=== PATIENT | female | born 1980 | race Caucasian/White ===

== ENCOUNTER 2018-09-13 10:41 | Outpatient (CLI) | payer MEDICAID ==
[~2018-09-13] VITALS: Ht 157.5 cm; Wt 83.0 kg
[2018-09-13 10:47] VITALS: Ht 157.5 cm; Wt 83.0 kg
--- NOTE | 2018-09-13 11:35 | TRIAGE ---
OB Triage Datetime Report Generated by CPN: 09/13/2018 11:35 Datetime: 09/13/2018 11:25 Maternal Assessment Level of Consciousness: Fully Conscious DTR's/Clonus: DTRs 1+ Headache: Denies Blurred Vision: No Nausea/Vomiting: Denies RUQ Epigastric Pain: Denies Facial Edema: None Labor Evaluation Frequency: NONE Monitor Mode: External Resting Tone [place] [employer]: Relaxed Heart Rate FHR Baseline Rate: 150 Monitor Mode: External US Variability: Moderate 6-25 bpm Accelerations: 10X10 Decelerations: Variable Category: Category I Comments: REACTIVE ACCORDDING TO AGE Pain Assessment Pain Scale: 0 Pain Presence: None/Denies Pain Type: N/A Pain Goal: 0 Vaginal Exam Membrane Status: Intact Datetime: 09/13/2018 10:44 Stage of : OB Triage Assessment Type: Triage Maternal Assessment Level of Consciousness: Fully Conscious DTR's/Clonus: DTRs 2+; No Clonus Headache: Denies Blurred Vision: No Respiratory Effort: Unlabored; Regular Rhythm; Equal Expansion Breath Sounds, Left: Clear and Equal Breath Sounds, Right: Clear and Equal Nausea/Vomiting: Denies RUQ Epigastric Pain: Denies Lower Extremities Edema: None Degree: None Upper Extremities Edema: None Degree: None Facial Edema: None Fall Risk Assessment History of Falling: (0) No Secondary Diagnosis: (0) No Ambulatory Aid: (0) Bedrest/Nurse Assist IV Therapy: (0) No Gait: (0) Normal/Bedrest/Immobile Mental Status: (0) Oriented to Own Ability Fall Score: 0 Fall Risk Score Definition: No Risk: No action required Datetime: 09/13/2018 10:36 Time of Arrival: 09/13/2018 10:45 EGA: 23.2 Arrived By: Ambulatory Arrived From: Home Chief Complaint: DFM SINCE LAST NIGHT Movement: Absent Contractions: Denies/Absent Rupture of Membranes: Denies Vaginal Discharge: Denies Recent Sexual Intercouse: Denies Abdominal Trauma: Not Applicable Additional Patient Complaints: NONE Time Provider Notified: 09/13/2018 10:51 (Annotations: Data stored by ROBERT on behalf of user) Provider Notified: MIESHA Initial Plan: CAMILLE AND TIMOTHY
--- NOTE | 2018-09-13 11:43 | PN ---
Triage Information Date/Time 09/13/18 Reason for visit: DFM Weeks of Gestation 23w2d /Para primigravida Diabetes: none Hypertention: none Objective bp 142/87, 119/72 Heart Rate: 150's Heart Rate Comments CAT I Contractions: None Results/Medications Imaging Results MVP4.0 Disposition: Discharge Assessment/Plan A IUP 23w2d DFM P discharge home , f/u with her OB DEVIN BEY MD Sep 13, 2018 11:43
== END 2018-09-13 11:32 | disposition home or self-care (01) ==
LOC: L-D 10:41 → OBT 10:41
PROVIDERS: ATTEND Obstetrics & Gynecology
DX: O36.8130 Decreased fetal movements, third trimester, not applicable or unspecified (principal); O09.512 Supervision of elderly primigravida, second trimester; Z3A.23 23 weeks gestation of pregnancy
CPT/HCPCS: 76815; Z7500; G0463

== ENCOUNTER 2018-11-14 10:28 | Outpatient (CLI) | payer MEDICAID ==
[~2018-11-14] VITALS: Ht 160 cm; Wt 86.6 kg
[2018-11-14 10:37] VITALS: Ht 160 cm; Wt 86.6 kg
--- NOTE | 2018-11-14 12:54 | TRIAGE ---
OB Triage Datetime Report Generated by CPN: 11/14/2018 12:53 Datetime: 11/14/2018 12:52 Stage of : OB Triage Maternal Assessment Level of Consciousness: Fully Conscious DTR's/Clonus: DTRs 1+ Headache: Denies Breath Sounds, Left: Clear and Equal Breath Sounds, Right: Clear and Equal Nausea/Vomiting: Denies RUQ Epigastric Pain: Denies Labor Evaluation Frequency: NONE Monitor Mode: External Resting Tone [place]: Relaxed Heart Rate FHR Baseline Rate: 130 Monitor Mode: External US Variability: Moderate 6-25 bpm Accelerations: 15X15 Decelerations: None Pain Assessment Pain Scale: 0 Pain Presence: None/Denies Pain Type: N/A Pain Goal: 3 Vaginal Exam Membrane Status: Intact Datetime: 11/14/2018 12:00 Stage of : OB Triage Maternal Assessment Level of Consciousness: Fully Conscious DTR's/Clonus: DTRs 1+ Headache: Denies Breath Sounds, Left: Clear and Equal Breath Sounds, Right: Clear and Equal Nausea/Vomiting: Denies RUQ Epigastric Pain: Denies Labor Evaluation Frequency: NONE Monitor Mode: External Resting Tone [place]: Relaxed Heart Rate FHR Baseline Rate: 130 Monitor Mode: External US Variability: Moderate 6-25 bpm Accelerations: 15X15 Decelerations: None Category: Category I Pain Assessment Pain Scale: 0 Pain Presence: None/Denies Pain Type: N/A Pain Goal: 3 Vaginal Exam Membrane Status: Intact Datetime: 11/14/2018 11:22 Maternal Assessment Level of Consciousness: Fully Conscious DTR's/Clonus: DTRs 1+ Headache: Denies Blurred Vision: No Respiratory Effort: Unlabored Breath Sounds, Left: Clear and Equal Breath Sounds, Right: Clear and Equal Nausea/Vomiting: Denies RUQ Epigastric Pain: Denies Facial Edema: None Labor Evaluation Frequency: NONE Monitor Mode: External Resting Tone [place]: Relaxed Heart Rate FHR Baseline Rate: 130 Monitor Mode: External US Variability: Moderate 6-25 bpm Accelerations: 15X15 Decelerations: None Category: Category I Pain Assessment Pain Scale: 0 Pain Presence: None/Denies Pain Type: N/A Pain Goal: 3 Vaginal Exam Membrane Status: Intact Datetime: 11/14/2018 11:04 Maternal Assessment Level of Consciousness: Fully Conscious DTR's/Clonus: DTRs 1+ Headache: Denies Blurred Vision: No Respiratory Effort: Unlabored Breath Sounds, Left: Clear and Equal Breath Sounds, Right: Clear and Equal Nausea/Vomiting: Denies RUQ Epigastric Pain: Denies Facial Edema: None Labor Evaluation Frequency: X1 Monitor Mode: External Duration (sec)2399: 50 Quality: Mild Pattern: Normal: <= 5 Contractions in 10 Minutes Resting Tone [place]: Relaxed Heart Rate FHR Baseline Rate: 135 Monitor Mode: External US Variability: Moderate 6-25 bpm Accelerations: 15X15 Decelerations: None Category: Category I Pain Assessment Pain Scale: 0 Pain Presence: None/Denies Pain Type: N/A Pain Goal: 3 Vaginal Exam Membrane Status: Intact Datetime: 11/14/2018 10:43 Maternal Assessment Level of Consciousness: Fully Conscious DTR's/Clonus: DTRs 1+ Headache: Denies Blurred Vision: No Nausea/Vomiting: Denies RUQ Epigastric Pain: Denies Facial Edema: None Monitor Mode: External Resting Tone [place]: Relaxed Heart Rate FHR Baseline Rate: 130 Monitor Mode: External US Variability: Moderate 6-25 bpm Accelerations: 10X10 Decelerations: None Category: Category I Pain Assessment Pain Scale: 0 Pain Presence: None/Denies Pain Type: N/A Pain Goal: 3 Vaginal Exam Membrane Status: Intact Datetime: 11/14/2018 10:36 Assessment Type: Triage Maternal Assessment Level of Consciousness: Fully Conscious DTR's/Clonus: DTRs 2+; No Clonus Headache: Denies Blurred Vision: No Respiratory Effort: Unlabored; Regular Rhythm; Equal Expansion Breath Sounds, Left: Clear and Equal Breath Sounds, Right: Clear and Equal Nausea/Vomiting: Denies RUQ Epigastric Pain: Denies Lower Extremities Edema: None Degree: None Upper Extremities Edema: None Degree: None Facial Edema: None Fall Risk Assessment History of Falling: (0) No Secondary Diagnosis: (0) No Ambulatory Aid: (0) Bedrest/Nurse Assist IV Therapy: (0) No Gait: (0) Normal/Bedrest/Immobile Mental Status: (0) Oriented to Own Ability Fall Score: 0 Fall Risk Score Definition: No Risk: No action required Datetime: 11/14/2018 10:20 Time of Arrival: 11/14/2018 10:20 EGA: 32.1 Arrived By: Wheelchair Arrived From: Home Chief Complaint: PT CAME IN FOR DFM Movement: Decreased Contractions: Denies/Absent Rupture of Membranes: Denies Vaginal Discharge: Denies Recent Sexual Intercouse: Denies Abdominal Trauma: Not Applicable Additional Patient Complaints: NONE Time Provider Notified: 11/14/2018 10:35 Provider Notified: MIESHA Initial Plan: NST AND BPP Datetime: 09/13/2018 10:44 Fall Score: 0 Fall Risk Score Definition: No Risk: No action required Datetime: 09/13/2018 10:36 EGA: 23.2
--- NOTE | 2018-11-14 14:26 | PN ---
Triage Information Date/Time November 14, 2018 Reason for visit: DFM Weeks of Gestation 32 weeks and 1 day /Para 1 para 0 Diabetes: none Hypertention: none Additional information 38-year-old with IUP at 32 weeks and 1 day presented with complaint of decreased movement. Patient had a history of gestational diabetes and current on insulin. Denies any leaking of fluid, vaginal bleeding or contractions. Denies any headache, blurred vision epigastric pain or right upper quadrant pain. Noted to have occasional blood pressure in the range of 130s-150s over 90s. records reviewed. Appears to have chronic hypertension based on elevated blood pressure in first trimester in the range of 150s-160s. Patient denies any symptoms. Is not on medication. Objective Heart Rate: 130's Exam General appearance: Alert and oriented x4 does not appear to be in any acute distress Abdomen: Soft, gravid, fundal height consider gestational age nontender NST: Category 1 and reactive BPP: 8/8 PH labs are negative Serial blood pressure most of the blood pressure in the range of 130s over 90s. Symptomatic Laboratory Tests Test 11/14/18 11:00 11/14/18 11:50 Urine Color YELLOW Urine Clarity CLEAR Urine pH 7.0 Urine Specific [place] 1.010 Urine Ketones NEGATIVE Urine Nitrite NEGATIVE Urine Bilirubin NEGATIVE Urine Urobilinogen NEGATIVE Urine Leukocyte Esterase NEGATIVE Urine Hemoglobin NEGATIVE Urine Glucose NEGATIVE Urine Total Protein NEGATIVE White Blood Count 7.9 Red Blood Count 4.54 Hemoglobin 13.1 Hematocrit 38.8 Mean Corpuscular Volume 85.5 Mean Corpuscular Hemoglobin 28.9 L Mean Corpuscular Hemoglobin Concent 33.8 Red Cell Distribution Width 13.0 Platelet Count 235 Mean Platelet Volume 10.2 Immature Granulocytes % 0.500 H Neutrophils % 65.7 Lymphocytes % 26.1 Monocytes % 5.9 Eosinophils % 1.4 Basophils % 0.4 Nucleated Red Blood Cells % 0.0 Immature Granulocytes # 0.040 H Neutrophils # 5.2 Lymphocytes # 2.1 Monocytes # 0.5 Eosinophils # 0.1 Basophils # 0.0 Nucleated Red Blood Cells # 0.0 Prothrombin Time 11.6 L Prothrombin Time Ratio 0.9 INR International Normalized Ratio 0.84 Activated Partial Thromboplast Time 26.5 Sodium Level 141 Potassium Level 4.5 Chloride Level 109 Carbon Dioxide Level 21 Anion Gap 11 Blood Urea Nitrogen 8 Creatinine 0.51 Est Glomerular Filtrat Rate mL/min > 60 Glucose Level 87 Uric Acid 3.2 Calcium Level 8.5 Total Bilirubin 0.3 Direct Bilirubin 0.00 Indirect Bilirubin 0.3 Aspartate Amino Transf (AST/SGOT) 24 Alanine Aminotransferase (ALT/SGPT) 25 Alkaline Phosphatase 115 Total Protein 6.5 Albumin 3.4 Globulin 3.10 Albumin/Globulin Ratio 1.09 Results/Medications Result Diagram: 11/14/18 1150 11/14/18 1150 Results 24 hrs Laboratory Tests Test 11/14/18 11:00 11/14/18 11:50 Urine Color YELLOW Urine Clarity CLEAR Urine pH 7.0 Urine Specific [place] 1.010 Urine Ketones NEGATIVE Urine Nitrite NEGATIVE Urine Bilirubin NEGATIVE Urine Urobilinogen NEGATIVE Urine Leukocyte Esterase NEGATIVE Urine Hemoglobin NEGATIVE Urine Glucose NEGATIVE Urine Total Protein NEGATIVE White Blood Count 7.9 Red Blood Count 4.54 Hemoglobin 13.1 Hematocrit 38.8 Mean Corpuscular Volume 85.5 Mean Corpuscular Hemoglobin 28.9 L Mean Corpuscular Hemoglobin Concent 33.8 Red Cell Distribution Width 13.0 Platelet Count 235 Mean Platelet Volume 10.2 Immature Granulocytes % 0.500 H Neutrophils % 65.7 Lymphocytes % 26.1 Monocytes % 5.9 Eosinophils % 1.4 Basophils % 0.4 Nucleated Red Blood Cells % 0.0 Immature Granulocytes # 0.040 H Neutrophils # 5.2 Lymphocytes # 2.1 Monocytes # 0.5 Eosinophils # 0.1 Basophils # 0.0 Nucleated Red Blood Cells # 0.0 Prothrombin Time 11.6 L Prothrombin Time Ratio 0.9 INR International Normalized Ratio 0.84 Activated Partial Thromboplast Time 26.5 Sodium Level 141 Potassium Level 4.5 Chloride Level 109 Carbon Dioxide Level 21 Anion Gap 11 Blood Urea Nitrogen 8 Creatinine 0.51 Est Glomerular Filtrat Rate mL/min > 60 Glucose Level 87 Uric Acid 3.2 Calcium Level 8.5 Total Bilirubin 0.3 Direct Bilirubin 0.00 Indirect Bilirubin 0.3 Aspartate Amino Transf (AST/SGOT) 24 Alanine Aminotransferase (ALT/SGPT) 25 Alkaline Phosphatase 115 Total Protein 6.5 Albumin 3.4 Globulin 3.10 Albumin/Globulin Ratio 1.09 Imaging Results PROCEDURE: US OB biophysical profile. CLINICAL INDICATION: decreased movements, TECHNIQUE: Multiple sonographic images of the pelvis were obtained. The images were reviewed on a PACS workstation. COMPARISON: US PELVIS 09/13/2018 FINDINGS: There is a single live intrauterine gestation. Cardiac activity is present with 134 beats per minute. There is a vertex presentation. The placenta is posterior. There is no evidence of placental abruption. There is a normal amount of amniotic fluid with an MECCA = 11.9 cm. Biophysical profile: movement 2/2 tone 2/2. breathing 2/2 MECCA 2/2 Total 03/27 RPTAT: AA . IMPRESSION: Normal biophysical profile. . Disposition: Discharge Assessment/Plan IUP at 32 weeks and 1 day Decreased movement testing reassuring Chronic hypertension, not on meds. Asymptomatic Recommended the patient to return tomorrow to triage for dropping 24-hour urine protein collection as well as monitoring the blood pressure Currently no evidence of preeclampsia testing reassuring Strict labor precautions kick count and follow-up with primary OB office in 48 hours after discharge from the hospital discussed with patient Signs and symptoms of discussed on strict precaution was given Patient verbalized understanding. All questions were answered to patient with satisfaction NOEMY MARINO MD Nov 14, 2018 14:26
== END 2018-11-14 12:51 | disposition home or self-care (01) ==
LOC: OBT 10:28 → L-D 10:28 → OBT 12:51
PROVIDERS: ATTEND Obstetrics & Gynecology
DX: O36.8130 Decreased fetal movements, third trimester, not applicable or unspecified (principal); Z3A.32 32 weeks gestation of pregnancy
CPT/HCPCS: 76818; 80053; 81003; 84560; 85025; 85610; 85730; Z7500; 82575; 84156; G0463

== ENCOUNTER 2018-11-21 23:55 | Inpatient (IN) | payer MEDICAID ==
[~2018-11-21] VITALS: Ht 157.5 cm; Wt 88.7 kg
[2018-11-22 00:23] VITALS: BP 125/90; PULSE 73; RESP 18; Ht 157.5 cm; Wt 88.7 kg
[2018-11-22] MEDS ORDERED: INSU100V3 IJ (02:14)
[2018-11-22] MEDS ORDERED: NPH,100I5 SQ (02:14)
[2018-11-22] MEDS ORDERED: PREN-93 PO (02:14)
[2018-11-22] MEDS: LACTATED RINGER'S 1,000 ML IV SCH ×3 (04:00→18:46)
[2018-11-22] MEDS: BETAMET NA PHOS/AC(6 MG/ML) 2 ML INJ SYG IM SCH (04:02)
--- NOTE | 2018-11-22 06:08 | TRIAGE ---
OB Triage Datetime Report Generated by CPN: 11/22/2018 06:08 Datetime: 11/22/2018 06:05 Monitor Mode: External US Datetime: 11/22/2018 05:30 Stage of : Labor Interventions: IV Bolus; Other Comments: right lateral position Datetime: 11/22/2018 04:51 Stage of : Antepartum Labor Evaluation Frequency: 2-5 Monitor Mode: External Duration (sec)2399: 40-60 Pattern: Normal: <= 5 Contractions in 10 Minutes Resting Tone [place]: Relaxed Heart Rate FHR Baseline Rate: 130 Monitor Mode: External US Variability: Moderate 6-25 bpm Accelerations: 15X15 Pain Assessment Pain Scale: 0 Pain Presence: None/Denies Pain Type: N/A Pain Relief Measures: Comfort Measures Datetime: 11/22/2018 03:50 Labor Evaluation Frequency: 2-7 Monitor Mode: External Duration (sec)2399: 50-70 Quality: Mild Resting Tone [place]: Relaxed Interventions: Side to Side Heart Rate FHR Baseline Rate: 135 Monitor Mode: External US Variability: Moderate 6-25 bpm Accelerations: 15X15 Decelerations: Variable Category: Category II Comments: variable x1 noted Datetime: 11/22/2018 03:17 Assessment Type: Admission Assessment Vaginal Bleeding: None Maternal Assessment Level of Consciousness: Fully Conscious DTR's/Clonus: DTRs 2+; No Clonus Headache: Denies Blurred Vision: No Respiratory Effort: Unlabored; Regular Rhythm; Equal Expansion Breath Sounds, Left: Clear and Equal Breath Sounds, Right: Clear and Equal Nausea/Vomiting: Denies RUQ Epigastric Pain: Denies Facial Edema: None Fall Risk Assessment History of Falling: (0) No Secondary Diagnosis: (0) No Ambulatory Aid: (0) Bedrest/Nurse Assist IV Therapy: (0) No Gait: (0) Normal/Bedrest/Immobile Mental Status: (0) Oriented to Own Ability Fall Score: 0 Fall Risk Score Definition: No Risk: No action required Datetime: 11/22/2018 02:50 Labor Evaluation Frequency: 3-9 Monitor Mode: External Duration (sec)2399: 50-80 Quality: Mild Pattern: Normal: <= 5 Contractions in 10 Minutes Resting Tone [place]: Relaxed Heart Rate FHR Baseline Rate: 130 Monitor Mode: External US Variability: Moderate 6-25 bpm Accelerations: 15X15 Decelerations: None Category: Category I Pain Presence: Intermittent Pain Type: Pressure Pain Location: Abdomen Pain Relief Measures: Comfort Measures Pain Assessment Comments: pt states she feels occasional pressure and tightness in abdomen but no p ain Datetime: 11/22/2018 02:16 Monitor Mode: Palpation Quality: Mild Contraction Comments: pt states she feels a tiny bit of tightness/pressure in the abdomen but no p ain Datetime: 11/22/2018 01:50 Labor Evaluation Frequency: occasional Monitor Mode: External Duration (sec)2399: 40-60 Quality: Mild Resting Tone [place]: Relaxed Interventions: Side to Side; Provider Notified Heart Rate FHR Baseline Rate: 135 Monitor Mode: External US Variability: Moderate 6-25 bpm Accelerations: 15X15 Decelerations: Prolonged Category: Category II Comments: 4min prolonged decel down to [place] of 105bpm with return to baseline of 135bpm noted Datetime: 11/22/2018 01:47 Monitor Mode: External Datetime: 11/22/2018 01:24 Labor Evaluation Frequency: x3/hr Monitor Mode: External Duration (sec)2399: 60-70 Quality: Mild Resting Tone [place]: Relaxed Contraction Comments: some uterine irritability noted Heart Rate FHR Baseline Rate: 135 Monitor Mode: External US Variability: Moderate 6-25 bpm Accelerations: 15X15 Decelerations: Variable Category: Category II Comments: x1 variable noted Pain Assessment Pain Scale: 0 Pain Presence: None/Denies Pain Type: N/A Datetime: 11/22/2018 00:32 Time of Arrival: 11/22/2018 23:54 EGA: 33.2 Arrived By: Ambulatory Arrived From: Home Chief Complaint: DECREASED MOVEMENT X 1DAY Movement: Decreased Contractions: Denies/Absent Rupture of Membranes: Denies Vaginal Bleeding: None Vaginal Discharge: Denies Recent Sexual Intercouse: Denies Abdominal Trauma: Not Applicable Patient Complaints: Other Additional Patient Complaints: Pt has had Type 2 DM for 6yrs now and is taking Regular _ NPH insuli n Time Provider Notified: 11/22/2018 00:46 Provider Notified: Initial Plan: VS, NST, BPP Datetime: 11/22/2018 00:23 Stage of : OB Triage Assessment Type: Triage Maternal Assessment Level of Consciousness: Fully Conscious DTR's/Clonus: DTRs 2+; No Clonus Headache: Denies Blurred Vision: No Respiratory Effort: Unlabored; Regular Rhythm; Equal Expansion Breath Sounds, Left: Clear and Equal Breath Sounds, Right: Clear and Equal Nausea/Vomiting: Denies RUQ Epigastric Pain: Denies Lower Extremities Edema: None Degree: None Upper Extremities Edema: None Degree: None Facial Edema: None Temperature Route: Oral Fall Risk Assessment History of Falling: (0) No Secondary Diagnosis: (0) No Ambulatory Aid: (0) Bedrest/Nurse Assist IV Therapy: (0) No Gait: (0) Normal/Bedrest/Immobile Mental Status: (0) Oriented to Own Ability Fall Score: 0 Fall Risk Score Definition: No Risk: No action required Pain Assessment Pain Scale: 0 Pain Presence: None/Denies Pain Type: N/A Datetime: 11/22/2018 00:21 Monitor Mode: External Monitor Mode: External US Comments: MONITOR APPLIED, FHT AUBIDLE AROUND 120BPM Datetime: 11/14/2018 10:36 Fall Score: 0 Fall Risk Score Definition: No Risk: No action required Datetime: 11/14/2018 10:20 EGA: 32.1 Datetime: 09/13/2018 10:44 Fall Score: 0 Fall Risk Score Definition: No Risk: No action required Datetime: 09/13/2018 10:36 EGA: 23.2
[2018-11-22] MEDS: INSULIN REGULAR, HUMAN 100 UNIT/1 ML 3ML VIAL SC SCH ×2 (08:25→17:14)
[2018-11-22] MEDS: NPH, HUMAN INSULIN ISOPHANE 3ML VIAL SC SCH ×2 (08:29→21:10)
[2018-11-22] MEDS: MAGNESIUM SULFATE 20 GM/500 ML 500 ML IV SCH ×2 (08:33→19:22)
[2018-11-22] MEDS ORDERED: MAGNESIUM SULFATE 4 GM/100 ML 100 ML IV SCH (09:00)
[2018-11-22] MEDS ORDERED: CA GLUCONATE (GM) 10% 10ML INJ IV PRN (09:00)
[2018-11-22] MEDS ORDERED: NACL 0.9% 3 ML SYG IV SCH (09:00)
[2018-11-22] MEDS: PRENATAL VITAMIN PO SCH (09:41)
--- NOTE | 2018-11-22 13:23 | PERINOTE ---
Date/Time of Note Date/Time of Note DATE: 11/22/18 TIME: 13:18 Assessment/Recommendations Other Assessments IUP at 33 weeks Chronic hypertension (BPs on this admission are similar to those in care (average 108-167/61-92). Cannot rule our a component of superimposed PIH Diabetes, managed with insulin. With betamethasone use the blood glucose levels are increased, but are in the range of 130-140 post prandial. Recommendations: I would observe this patient until after the second dose of betamethasone. I would then continue to observe the blood glucose for an additional 12-24 hours with the patient on reduced activity (not bed rest). If the blood glucose remains less than 150 and the BP does not increase with some increase in activity I would consider D/C home with close observation, including twice weekly NST and weekly MECCA, weekly PIH labs and ultrasound every 3 weeks for growth. OB Subjective Free Text/Dictaton Patient presented for decreased movement, found to have elevated BP with normal lab values. Patient was given betamethasone and treated with magnesium sulfate. Patient also a pregestational diabetic, treated with insulin. HD# 2 IUP @ 33W2D Current Medications Current Medications Betamethasone Acet/Betameth SodPhos ([place]el[place] Soluspan) 12 mg Q24H IM Last administered on 11/22/18at 04:02; Admin Dose 12 MG; Start 11/22/18 at 03:00; Stop 11/23/18 at 03:01 Prenat Multivit/ [place]/Iron/Folic Ac () 1 tab DAILY PO Last administered on 11/22/18at 09:41; Admin Dose 1 TAB; Start 11/22/18 at 09:00 Insulin Human NPH (Humulin N) 24 unit AC BREAKFAST SC Last administered on 11/22/18at 08:29; Admin Dose 24 UNIT; Start 11/22/18 at 07:05 Insulin Human Regular (Humulin R) 16 unit AC DINNER SC ; Start 11/22/18 at 17:05 Insulin Human NPH (Humulin N) 24 unit HS SC ; Start 11/22/18 at 21:00 Insulin Human Regular (Humulin R) 12 unit AC BREAKFAST SC Last administered on 11/22/18at 08:25; Admin Dose 12 UNIT; Start 11/22/18 at 07:05 IV Flush (NS 3 ml) 3 ml PER PROTOCOL IV ; Start 11/22/18 at 09:00 Magnesium Sulfate 500 ml @ 50 mls/hr Q10H IV Last administered on 11/22/18at 08:33; Admin Dose 50 MLS/HR; Start 11/22/18 at 08:33 Calcium Gluconate (Ca Gluc) 1 gm ONCE PRN IV FOR MAGNESIUM TOXICITY; Start 11/22/18 at 09:00 Lactated Ringer's 1,000 ml @ 75 mls/hr [id number] IV ; Start 11/22/18 at 09:49 Past Medical History Medical History: diabetes, hypertension Surgical History: other (Ovarian cystectomy) Para: 0 : 1 LMP (Females 10-50): Family History Significant Family History: diabetes, hypertension Social History Smoker: non-smoker Alcohol: none Drugs: none OB Admission Exam Physical Exam Vitals: Vital Signs Date Temp Pulse Resp B/P (MAP) Pulse Ox O2 O2 Flow FiO2 Time Delivery Rate 11/22/18 97.5 73 18 125/90 Room Air 00:23 (102) BP's 116-175/75-99 Heart: Rhythm Normal Lungs: Clear Abdomen: WNL Last 72 hourBlood Glucose Bedside Glucose - 72 Hours Test 11/22/18 00:39 11/22/18 08:19 11/22/18 10:52 11/22/18 12:26 Bedside 124 132 135 138 Glucose mg/dL (70-220) mg/dL (70-220) mg/dL (70-220) mg/dL (70-220) Last 72 hours Lab Results CBC & BMP 11/22/18 03:35 Liver Function Test 11/22/18 03:35 Alanine Aminotransferase (ALT/SGPT) 27 Albumin 3.2 L Alkaline Phosphatase 137 H Aspartate Amino Transf (AST/SGOT) 23 Direct Bilirubin 0.00 Total Protein 6.2 Ultrasound Results EFW 2363g with disproportionately increased AC. BPP /8 MECCA 10.7 Cervical Length 3.8 cm PACO MOCTEZUMA MD Nov 22, 2018 13:23
[2018-11-22] MEDS ORDERED: ACETAMINOPHEN 325 MG TAB PO PRN (19:30)
--- NOTE | 2018-11-22 19:43 | HP ---
Date/Time of Note Date/Time of Note DATE: 11/22/18 TIME: 19:24 OB - History Hx of Present Free Text/Dictation service was rendered on 11/21/18 this is 38y.o primigravida at 32w 1d presents triage with c/o DFM Initial BP 150/90 also known to be type II DM on insulin EFM no UC's CAT II while evaluating for PIH situation EFM revealed some uc's BPP 8/8 MECCA 11.9 admitted for further evaluation and extended observation of tracing and also collecting 24 hrs and perinatalogy consultation. Chief Complaint: DFM Estimated Due Date: January 08, 2019 : 1 Para: 0 Spontaneous : 0 Therapeutic : 0 Care: Good Care Ultrasounds: Normal mid trimester US Obstetrical Complications: Gestational Hypertension, Other (type II DM) Past Family/Social History * Past Medical, Surgical, Family and Obstetric Histories reviewed from chart. Blood Type: Unknown Rubella: unknown RPR/VDRL: Unknown GBS Status: Unknown HBsAG: Unknown OB Admission Exam Vital Signs Vital Signs Vital Signs Date Temp Pulse Resp B/P (MAP) Pulse Ox O2 O2 Flow FiO2 Time Delivery Rate 11/22/18 97.5 73 18 125/90 Room Air 00:23 (102) Physical Exam HEENT: WNL Heart: Rhythm Normal Lungs: Clear, Equal Abdomen: WNL Extremities: Normal Reflexes: Normal Cervical Dilatation: other Effacement: Other Membranes: Intact Amniotic Fluid: Unevaluable Heart Rate: 140's Accelerations: No Accelerations Decelerations: Variable Decelerations Varibility: Minimum Contractions on Admission: None Last 72 hourBlood Glucose Bedside Glucose - 72 Hours Test 11/22/18 00:39 11/22/18 08:19 11/22/18 10:52 11/22/18 12:26 Bedside 124 132 135 138 Glucose mg/dL (70-220) mg/dL (70-220) mg/dL (70-220) mg/dL (70-220) Test 11/22/18 17:11 Bedside 122 Glucose mg/dL (70-220) Last 72 hours Lab Results CBC & BMP 11/22/18 03:35 Liver Function Test 11/22/18 03:35 Alanine Aminotransferase (ALT/SGPT) 27 Albumin 3.2 L Alkaline Phosphatase 137 H Aspartate Amino Transf (AST/SGOT) 23 Direct Bilirubin 0.00 Total Protein 6.2 OB Assessment/Plan Other Assessment: IUO 32w1d IDDM( B DM) GHTN\ PTL P BMZx2 keven consult 24 hr collection urine for MN and Cr DEVIN BEY MD Nov 22, 2018 19:35
[2018-11-23] MEDS: BETAMET NA PHOS/AC(6 MG/ML) 2 ML INJ SYG IM SCH (03:56)
[2018-11-23] MEDS: MAGNESIUM SULFATE 20 GM/500 ML 500 ML IV SCH (05:56)
[2018-11-23] MEDS: LACTATED RINGER'S 1,000 ML IV SCH ×2 (07:21→18:42)
--- NOTE | 2018-11-23 07:54 | QN ---
Documentation Comment PT NOT FEELING UTERINE CTXS RECEIVED THE SECOND DOSE OF STEROIDS MAGNESIUM WILL BE OFF TOMORROW TRACING CATEGORY 1 TOTAL PROTIEN IS 566 WILL ORDER ANOTHER BPP FOR THE SPONTANEOUS DECLERATION FROM LAST NIGHT CPM ASHLY WHITESIDE MD Nov 23, 2018 07:54
[2018-11-23] MEDS: NPH, HUMAN INSULIN ISOPHANE 3ML VIAL SC SCH ×2 (08:08→21:04)
[2018-11-23] MEDS: INSULIN REGULAR, HUMAN 100 UNIT/1 ML 3ML VIAL SC SCH ×2 (08:09→17:44)
[2018-11-23] MEDS: PRENATAL VITAMIN PO SCH (09:14)
--- NOTE | 2018-11-23 10:19 | PN ---
Date/Time of Note Date/Time of Note DATE: 11/23/18 TIME: 10:15 OB Subjective Subjective Subjective I was asked to review this patient's heart tracing. At About 9:45 this AM the patient had a prolonged variable deceleration to 60bpm, lasting 4-5 minutes from baseline to baseline FHR. After the deceleration, the heart rate elevated to about 140 bpm with loss of accelerations and decreased variability for 15-20 minutes, followed by gradual recovery. The patient had a similar deceleration at about 1:30AM, although the recovery was more rapid. BPP this AM was 8/8. Given the circumstances (type 2 diabetes, CHTN with possible superimposed PIH), I would be concerned about placental damage. Please perform an umbilical artery Doppler exam. I would not discharge this patient unless the Doppler exam is normal and the decelerations stop for a minimum of 24 hours. In the meantime I would make sure the patient has SCDs applied, is not lying flat and supine and I would discontinue the magnesium as the patient is not in labor. PACO MOCTEZUMA MD Nov 23, 2018 10:19
[2018-11-23] MEDS: DOCUSATE SODIUM 100 MG CAP PO PRN (23:25)
--- NOTE | 2018-11-24 08:38 | QN ---
Documentation Comment 33+wks GA preeclampsia BP 140s/90s No Headache No blurry vision No epigastric pain NST reassuring [place] No CTXs --->Management as perinatologist and provider YOJANA SALAZAR M.D. Nov 24, 2018 08:38
[2018-11-24] MEDS: INSULIN REGULAR, HUMAN 100 UNIT/1 ML 3ML VIAL SC SCH ×2 (08:55→18:06)
[2018-11-24] MEDS: LACTATED RINGER'S 1,000 ML IV SCH ×2 (08:56→21:55)
[2018-11-24] MEDS: NPH, HUMAN INSULIN ISOPHANE 3ML VIAL SC SCH ×2 (08:56→21:00)
[2018-11-24] MEDS: PRENATAL VITAMIN PO SCH (09:19)
[2018-11-25] MEDS: LACTATED RINGER'S 1,000 ML IV SCH ×3 (04:29→23:58)
[2018-11-25] MEDS: INSULIN REGULAR, HUMAN 100 UNIT/1 ML 3ML VIAL SC SCH ×2 (08:17→18:16)
[2018-11-25] MEDS: NPH, HUMAN INSULIN ISOPHANE 3ML VIAL SC SCH ×2 (08:20→21:08)
[2018-11-25] MEDS: PRENATAL VITAMIN PO SCH (08:21)
--- NOTE | 2018-11-25 17:28 | QN ---
Documentation Comment PT IS ASYMPTOMATIC NO HEADACHE BP 180/[address] LOONEY WILL START LABATELOL 100MG BID AND REPEAT PIH LABS ASHLY WHITESIDE MD Nov 25, 2018 17:28
[2018-11-25] MEDS ORDERED: LABETALOL 100 MG TAB PO SCH ×3 (21:00)
[2018-11-25] MEDS ORDERED: LABETALOL 100 MG TAB PO ONE (22:30)
[2018-11-26] MEDS: PRENATAL VITAMIN PO SCH (08:43)
[2018-11-26] MEDS: LABETALOL 200 MG TAB PO SCH ×2 (08:43→20:51)
[2018-11-26] MEDS: INSULIN REGULAR, HUMAN 100 UNIT/1 ML 3ML VIAL SC SCH ×2 (08:46→18:20)
[2018-11-26] MEDS: NPH, HUMAN INSULIN ISOPHANE 3ML VIAL SC SCH ×2 (08:48→20:54)
[2018-11-26] MEDS: LACTATED RINGER'S 1,000 ML IV SCH (12:55)
[2018-11-27] MEDS ORDERED: LABETALOL 100 MG TAB PO STA (01:22)
[2018-11-27] MEDS: LACTATED RINGER'S 1,000 ML IV SCH ×3 (01:40→18:37)
[2018-11-27] MEDS ORDERED: LABETALOL 200 MG TAB PO SCH (06:00)
[2018-11-27] MEDS: PRENATAL VITAMIN PO SCH (08:10)
[2018-11-27] MEDS: INSULIN REGULAR, HUMAN 100 UNIT/1 ML 3ML VIAL SC SCH (08:14)
[2018-11-27] MEDS: NPH, HUMAN INSULIN ISOPHANE 3ML VIAL SC SCH (08:16)
[2018-11-27] MEDS ORDERED: LACTATED RINGER'S 1,000 ML IV SCH ×2 (11:45→18:39)
[2018-11-27] MEDS ORDERED: OXYTOCIN 30 UNITS/LR 500 ML IV PRN ×2 (12:00→19:00)
[2018-11-27] MEDS ORDERED: MAGNESIUM SULFATE 4 GM/100 ML 100 ML IVPB ONE (12:00)
[2018-11-27] MEDS ORDERED: CEFAZOLIN 2 GM/50 ML (PMX) 50 ML IVPB SCH (12:00)
[2018-11-27] MEDS ORDERED: MAGNESIUM SULFATE 20 GM/500 ML 500 ML IV SCH (12:00)
[2018-11-27] MEDS ORDERED: CARBOPROST 250 MCG INJ IM PRN ×2 (12:00→19:00)
[2018-11-27] MEDS ORDERED: MISOPROSTOL 200 MCG TAB PR PRN ×2 (12:00→19:00)
[2018-11-27] MEDS ORDERED: METHYLERGONOVINE 0.2 MG INJ IM PRN ×2 (12:00→19:00)
--- NOTE | 2018-11-27 13:29 | PREAC ---
Date/Time of Note Date/Time of Note DATE: 11/27/18 TIME: 13:28 Anesthesia Eval and Record Evaluation Time Pre-Procedure Interview DATE: 11/27/18 TIME: 13:28 Age 38 Sex female NPO: 8 hrs Preoperative diagnosis iup at 33 weeks Planned procedure primary c section Past Medical History Past Medical History: Includes : PIH Surgery & Anesthesia Issues No known issue Meds Anticoagulation: No Beta Jorge Luis within 24 hr: No Reason Beta Jorge Luis not given: Pt. not on B-Jorge Luis Reported Medications Vit No.124/Iron/FA ( Vitamin Tablet) 1 Each Tablet, 1 EACH PO, TAB 11/22/18 NPH, Human Insulin Isophane (Humulin N Kwikpen) 100 Unit/1 Ml Insuln.pen, 24 UNIT SQ, EA 11/22/18 Insulin Regular, Human (Humulin R) 100 Unit/1 Ml Vial, 16 UNIT IJ, VIAL 11/22/18 Current Medications Prenat Multivit/ [place]/Iron/Folic Ac () 1 tab DAILY PO Last administer ed on 11/27/18at 08:10; Admin Dose 1 TAB; Start 11/22/18 at 09:00 Insulin Human NPH (Humulin N) 24 unit AC BREAKFAST SC Last administered on 11/27/18at 08:16; Admin Dose 24 UNIT; Start 11/22/18 at 07:05 Insulin Human Regular (Humulin R) 16 unit AC DINNER SC Last administered on 11/26/18at 18:20; Admin Dose 16 UNIT; Start 11/22/18 at 17:05 Insulin Human NPH (Humulin N) 24 unit HS SC Last administered on 11/26/18at 20:54; Admin Dose 24 UNIT; Start 11/22/18 at 21:00 Insulin Human Regular (Humulin R) 12 unit AC BREAKFAST SC Last administered on 11/27/18 08:14; Admin Dose 12 UNIT; Start 11/22/18 at 07:05 Lactated Ringer's 1,000 ml @ 75 mls/hr [id number] IV Last administered on 11/27/18at 01:40; Admin Dose 75 MLS/HR; Start 11/22/18 at 09:49 Acetaminophen (Tylenol Tab) 650 mg Q4H PRN PO MILD PAIN(1-3)OR ELEVATED TEMP Last administered on 11/22/18at 19:28; Admin Dose 650 MG; Start 11/22/18 at 19:30 Docusate Sodium (Colace) 100 mg BID PRN PO CONSTIPATION Last administered on 11/23/18at 23:25; Admin Dose 100 MG; Start 11/23/18 at 23:00 Labetalol HCl (Normodyne) 200 mg Q8 PO Last administered on 11/27/18at 05:48; Admin Dose 200 MG; Start 11/27/18 at 06:00 Lactated Ringer's 1,000 ml @ 125 mls/hr Q8H IV Last administered on 11/27/18at 12:03; Admin Dose 125 MLS/HR; Start 11/27/18 at 11:45 Cefazolin Sodium/ Dextrose 50 ml @ 100 mls/hr ONCE IVPB ; Start 11/27/18 at 12:00 Oxytocin/Lactated Ringer's 500 ml @ 0 mls/hr ONCE PRN IV .VAGINAL BLEEDING; Start 11/27/18 at 12:00 Methylergonovine Maleate (Methergine) 0.2 mg ONCE PRN IM .VAGINAL BLEEDING; Start 11/27/18 at 12:00 Carboprost Tromethamine (Hemabate) 250 mcg ONCE PRN IM .VAGINAL BLEEDING; Start 11/27/18 at 12:00 Misoprostol (Cytotec) 1,000 mcg ONCE PRN [place] .VAGINAL BLEEDING; Start 11/27/18 at 12:00 Magnesium Sulfate 500 ml @ 50 mls/hr Q10H IV Last administered on 11/27/18at 12:22; Admin Dose 50 MLS/HR; Start 11/27/18 at 12:00 Meds reviewed: Yes Allergies Coded Allergies: No Known Allergy (Unverified , 11/22/18) Allergies Reviewed: Yes Labs/Studies Labs Reviewed: Reviewed by anesthesiologist Result Diagram: 11/27/18 1200 11/25/18 1812 Laboratory Tests 11/27/18 12:00 Blood Bank Test 11/27/18 12:00 Antibody Screen NEGATIVE Blood Type O POSITIVE Rh Immune Globulin Candidate NO test: Positive Pre-procedure Exam Airway: Adequate mouth opening, Adequate thyromental dist Mallampati: Mallampati II Teeth: Normal Lung: Normal Heart: Normal ASA Physical Status ASA physical status: 2 Emergency: None Planned Anesthetic Neuraxial: Spinal Planned Pain Management Sub-arachniod narcotics Pre-operative Attestations Prior to commencing anesthesia and surgery, the patient was re-evaluated, there was verification of: *The patient's identity *The results of appropriate recent lab work and preoperative vital signs *The above evaluation not changing prior to induction *Anesthetic plan, risk benefits, alternative and complications discussed with patient/family; questions answered; patient/family understands, accepts and wishes to proceed. HILARIO COLORADO Nov 27, 2018 13:29
[2018-11-27] MEDS ORDERED: morphine SULFATE/PF (10 MG/10 ML) INJ ONE (13:31)
[2018-11-27] MEDS ORDERED: FENTAnyl 50 MCG/ML VIAL ONE (13:31)
[2018-11-27] MEDS ORDERED: PHENYLephrine 10 MG INJ ONE (13:33)
--- NOTE | 2018-11-27 14:23 | PN ---
DATE: 11/27/2018 The patient has been admitted currently for about a week. Two days ago, her blood pressure started t o increase. I started her on labetalol 100 mg twice a day. However, she continues to have higher bl ood pressures so the dose was increased to 200 mg twice a day. Today, her blood pressures again are in the very severe range blood pressures. She is currently 34 weeks, so delivery is recommended seco ndary to severe preeclampsia not responding to blood pressure medication. I notified Dr. Whiteside. Dictated By: FRANKLYN LOONEY MD ST/NTS Conf#: [id number] DID#: [id number] CC: ASHLY WHITESIDE MD; SAI BEY MD;*End*
--- NOTE | 2018-11-27 15:00 | QN ---
Documentation Comment pt. has had elevated BP and not symptomatic with headache. due to the increasing BP it was advised by Dr. Gavin. to deliver due to the late declerations will not attempt induction and will do primary c/s explained to patient regarding the advantages of delivery versus waiting and patient agrees to proceed with primary c/s ASHLY WHITESIDE MD Nov 27, 2018 15:00
[2018-11-27] MEDS ORDERED: DEXAMETHASONE 4 MG/ML 1 ML INJ ONE (15:01)
[2018-11-27] MEDS ORDERED: ONDANSETRON 4 MG INJ ONE (15:02)
--- NOTE | 2018-11-27 15:49 | PAC ---
Date/Time of Note Date/Time of Note DATE: 11/27/18 TIME: 15:49 Post-Anesthesia Notes Post-Anesthesia Note Last documented vital signs temp 97.8 bp 128/74 O2 sat 98% Activity: WNL Respiratory function: WNL Cardiovascular function: WNL Mental status: Baseline Pain reasonably controlled: Yes Hydration appropriate: Yes Nausea/Vomiting absent: Yes HILARIO COLORADO Nov 27, 2018 15:49
[2018-11-27] MEDS ORDERED: GLUCOSE GEL 15 GRAM TUBE BUCCAL PRN (16:00)
[2018-11-27] MEDS ORDERED: DEXTROSE 50% 50 ML SYRINGE IV PRN ×2 (16:00)
[2018-11-27] MEDS ORDERED: GLUCOSE GEL 15 GRAM TUBE PO PRN ×2 (16:00)
[2018-11-27] MEDS ORDERED: NALOXONE (0.4 MG/ML) INJ IV PRN (16:00)
[2018-11-27] MEDS ORDERED: GLUCAGON 1 MG INJ IM PRN (16:00)
[2018-11-27] MEDS ORDERED: DIPHENHYDRAMINE 50 MG INJ IV PRN (16:00)
[2018-11-27] MEDS ORDERED: KETOROLAC 30 MG INJ IV PRN (16:00)
[2018-11-27] MEDS ORDERED: ZOLPIDEM 5 MG TAB PO PRN (16:00)
[2018-11-27] MEDS ORDERED: HYDROmorphONE 0.5 MG/0.5 ML SYG IV PRN ×2 (16:00)
[2018-11-27] MEDS ORDERED: ONDANSETRON 4 MG INJ IV PRN (16:00)
--- NOTE | 2018-11-27 16:26 | OPR ---
Operative Report Planned Procedure Procedure date Nov 27, 2018 Procedure(s) primary c/s Performed by see signature line Surgical Sales Representative: MARK BUCK Pre-procedure diagnosis severe pre eclampsia [id number] Anesthesia Type: [id number] spinal Post-Procedure Post-procedure diagnosis severe pre-eclampsia Findings Live Baby [], Apgars [] and [], weight [], position [], [] presentation []cord. Estimated Blood Loss: 600 - 700 mls Specimen(s) none Grafts/Implant(s) none Complication(s) none Procedure Description Under satisfactory [spinal ] anesthesia, the patient was prepped and draped and placed in a supine position, tilted to the left. Pfannenstiel incision was made, carried through the subcutaneous tissue. Bleeders brought under control with electrocautery. Fascia incised to the length of the incision. Rectus muscles from the fascia, divided midline. Peritoneum exposed, entered through a transverse incision. Exploration of abdomen revealed gravid uterus. Bladder flap was developed. Transverse incision was made in the lower segment of the uterus. Amniotic sac ruptured. []clear amniotic fluid noted. [] Nasal oropharyngeal suction was performed. The baby was handed to the team for immediate attention. The placenta was delivered manually intact. Uterine cavity was cleaned with wet sponge and drainage established. Uterus closed in 2 layers using [] in continuous fashion. Peritoneal cavity irrigated with warm saline. Sponge, needle and instrument count reported to be correct. Abdominal peritoneum closed with [] continuously. Rectus muscle approximated with []. Fascia closed with [one monocryl ], and skin closed with marya. Estimated blood loss 700[]mL. ASHLY WHITESIDE MD Nov 27, 2018 16:25
--- NOTE | 2018-11-27 16:27 | QN ---
Documentation Comment pt. is s/p c/s and is kept NPO. Dr. Song (Hospitalist) has been consulted ( I spoke to him on the phone) for her diabetes and blood pressure management. He stated that he will see her in recovery room ASHLY WHITESIDE MD Nov 27, 2018 16:27
[2018-11-27] MEDS ORDERED: MAGNESIUM SULFATE 2 GM/50 ML 50 ML IVPB ONE (16:30)
[2018-11-27] MEDS ORDERED: LABETALOL HCL 20MG INJ IV PRN (17:00)
[2018-11-27] MEDS ORDERED: hydrALAzine 20 MG INJ IV PRN (17:00)
--- NOTE | 2018-11-27 17:07 | HP ---
Date/Time of Note Date/Time of Note DATE: 11/27/18 TIME: 17:07 Assessment/Plan VTE Prophylaxis Pharmacological prophylaxis: other Lines/Catheters IV Catheter Type (from Nrsg): Peripheral IV Assessment/Plan Hospital Course Patient is a female with a past medical history significant for diabetes mellitus who presents to [facility] original for decreased movement who ultimately had section secondary to worries of severe preeclampsia. Patient currently is just out of the operating room within 30 minutes. Patient other than feeling dizzy and having a very mild headache feels well. Lower extremity cannot be moved yet. Patient states that she has not on any blood pressure medications at home and for the past 6 months has been on insulin when she was previously on metformin. It appears during her that her diabetic requirement increased. Currently patient denies any chest pain, shortness of breath, she states she has a very mild headache but not significant as well as some dizziness. Patient denies any nausea vomiting at this time. Objective Physical exam General: Patient is laying in bed and answers questions appropriately Mentation: Patient is alert and oriented 4, Head: Normocephalic atraumatic Eyes: EOMI, pupils reactive to light Neck: Supple, nontender, midline Respiratory: Clear to auscultation bilaterally Cardiovascular: regular rate, no obvious murmurs Gastrointestinal: non-tender to palpation, bowel sounds heard. Neurological: Moves upper extremities spontaneously with full muscle strength, lower extremity cannot be assessed due to anesthesia at this time Skin: No new skin lesions Assessment and plan Hypertension -For now as patient is n.p.o. status post , will use as needed hydralazine Diabetes -We will use insulin sliding scale for now and accordingly adjust Disposition -Thank you for having us as hospitalist consult, will continue to follow Result Diagram: 11/27/18 1200 11/25/18 1812 Results 24hrs Laboratory Tests Test 11/26/18 20:29 11/27/18 07:45 11/27/18 10:17 11/27/18 12:00 Bedside Glucose 108 70 153 White Blood Count 8.0 Red Blood Count 4.39 Hemoglobin 12.9 Hematocrit 37.0 Mean Corpuscular 84.3 Volume Mean Corpuscular 29.4 Hemoglobin Mean Corpuscular 34.9 Hemoglobin Concent Red Cell Distribution 12.9 Width Platelet Count 240 Mean Platelet Volume 10.2 Immature Granulocytes 0.400 % Neutrophils % 69.6 Lymphocytes % 20.6 Monocytes % 7.4 Eosinophils % 1.6 Basophils % 0.4 Nucleated Red Blood 0.0 Cells % Immature Granulocytes 0.030 # Neutrophils # 5.6 Lymphocytes # 1.7 Monocytes # 0.6 Eosinophils # 0.1 Basophils # 0.0 Nucleated Red Blood 0.0 Cells # Prothrombin Time 12.0 Prothrombin Time 0.9 Ratio INR International 0.88 Normalized Ratio Activated 25.8 Partial Thromboplast Time Rapid Plasma Reagin NONREACTIVE HPI/ROS Admit Date/Time Admit Date/Time Nov 22, 2018 at 02:43 PMH/Family/Social Past Medical History Medical History: diabetes, hypertension Medications Current Medications Prenat Multivit/ [place]/Iron/Folic Ac () 1 tab DAILY PO Last administered on 11/27/18at 08:10; Admin Dose 1 TAB; Start 11/22/18 at 09:00 Acetaminophen (Tylenol Tab) 650 mg Q4H PRN PO MILD PAIN(1-3)OR ELEVATED TEMP Last administered on 11/22/18at 19:28; Admin Dose 650 MG; Start 11/22/18 at 19:30 Docusate Sodium (Colace) 100 mg BID PRN PO CONSTIPATION Last administered on 11/23/18at 23:25; Admin Dose 100 MG; Start 11/23/18 at 23:00 Lactated Ringer's 1,000 ml @ 125 mls/hr Q8H IV Last administered on 11/27/18at 12:03; Admin Dose 125 MLS/HR; Start 11/27/18 at 11:45 Cefazolin Sodium/ Dextrose 50 ml @ 100 mls/hr ONCE IVPB ; Start 11/27/18 at 12:00 Oxytocin/Lactated Ringer's 500 ml @ 0 mls/hr ONCE PRN IV .VAGINAL BLEEDING; Start 11/27/18 at 12:00 Methylergonovine Maleate (Methergine) 0.2 mg ONCE PRN IM .VAGINAL BLEEDING; Start 11/27/18 at 12:00 Carboprost Tromethamine (Hemabate) 250 mcg ONCE PRN IM .VAGINAL BLEEDING; Start 11/27/18 at 12:00 Misoprostol (Cytotec) 1,000 mcg ONCE PRN [place] .VAGINAL BLEEDING; Start 11/27/18 at 12:00 Magnesium Sulfate 500 ml @ 50 mls/hr Q10H IV Last administered on 11/27/18at 12:22; Admin Dose 50 MLS/HR; Start 11/27/18 at 12:00 Naloxone HCl (Narcan) 0.1 mg Q2M PRN IV .RESP RATE; Start 11/27/18 at 16:00; Stop 11/28/18 at 15:59 Ketorolac Tromethamine (Toradol) 30 mg Q6H PRN IV PAIN AFTER CSECTION; Start 11/27/18 at 16:00; Stop 11/28/18 at 15:59 Hydromorphone HCl (Dilaudid) 0.2 mg Q3H PRN IV .PAIN 1-5; Start 11/27/18 at 16:00; Stop 11/28/18 at 15:59 Hydromorphone HCl (Dilaudid) 0.4 mg Q3H PRN IV .PAIN 6-10; Start 11/27/18 at 16:00; Stop 11/28/18 at 15:59 Diphenhydramine HCl (Benadryl) 25 mg Q6H PRN IV .ITCHING; Start 11/27/18 at 16:00; Stop 11/28/18 at 15:59 Ondansetron HCl (Zofran Inj) 4 mg Q6H PRN IV .NAUSEA/VOMITING Last administered on 11/27/18at 16:13; Admin Dose 4 MG; Start 11/27/18 at 16:00; Stop 11/28/18 at 15:59 Zolpidem Tartrate (Ambien) 5 mg HS MAY REPEAT X 1 PRN PO .INSOMNIA; Start 11/27/18 at 16:00; Stop 11/28/18 at 15:59 Miscellaneous Information (* Miscellaneous Pharmacy Order) Duramorph: .2 mg Spi... GIVEN XX ; Start 11/27/18 at 16:00 Miscellaneous Information 1 ea NOTE XX ; Start 11/27/18 at 16:00 Glucose (Glutose) 15 gm Q15M PRN PO DECREASED GLUCOSE; Start 11/27/18 at 16:00 Glucose (Glutose) 22.5 gm Q15M PRN PO DECREASED GLUCOSE; Start 11/27/18 at 16:00 Dextrose (D50w Syringe) 25 ml Q15M PRN IV DECREASED GLUCOSE; Start 11/27/18 at 16:00 Dextrose (D50w Syringe) 50 ml Q15M PRN IV DECREASED GLUCOSE; Start 11/27/18 at 16:00 Glucagon (Glucagen) 1 mg Q15M PRN IM DECREASED GLUCOSE; Start 11/27/18 at 16:00 Glucose (Glutose) 15 gm Q15M PRN BUCCAL DECREASED GLUCOSE; Start 11/27/18 at 16:00 Magnesium Sulfate 50 ml @ 25 mls/hr ONCE ONCE IVPB ; Start 11/27/18 at 16:30; Stop 11/27/18 at 18:29 Diagnostic Test (Pha) (Accu-Chek) 1 02 XX ; Start 11/28/18 at 02:00 Insulin Aspart (Novolog Insulin Pen) NOVOLOG *MODERATE* ALGORITHM Q4 SC ; Start 11/27/18 at 17:00 Hydralazine HCl (Apresoline) 10 mg Q4H PRN IV sbp >160; Start 11/27/18 at 17:00 Coded Allergies: No Known Allergy (Unverified , 11/22/18) Family History Significant Family History: diabetes, hypertension Social History Alcohol Use: none Smoking Status: Never smoker Drug Use: none Exam/Review of Systems Vital Signs Vitals Intake and Output 11/26/18 11/26/18 11/27/18 1515:00 23:00 07:00 IntakeIntake Total 600 ml 600 ml 600 ml OutputOutput Total 1000 ml BalanceBalance -400 ml 600 ml 600 ml JERRELL VALENTINE Nov 27, 2018 17:07
[2018-11-27] MEDS: INSULIN ASPART [NOVOLOG] 3 ML PEN SC SCH ×2 (18:30→21:00)
[2018-11-27] MEDS ORDERED: OXYTOCIN 30 UNITS/LR 500 ML IV SCH (18:39)
[2018-11-27 18:47] VITALS: BP 137/73; PULSE 70; RESP 18
[2018-11-27] MEDS ORDERED: NA PHOSPHATE/BIPHOS 133 ML ENEMA PR PRN (19:00)
[2018-11-27] MEDS ORDERED: LANOLIN HPA 1 PKT TOP PRN (19:00)
[2018-11-27] MEDS ORDERED: NACL 0.9% 3 ML SYG IV SCH ×2 (19:00→21:30)
--- NOTE | 2018-11-27 19:09 | CONS ---
Assessment/Plan Assessment/Plan Assessment/Plan (Daily) Patient is a female with a past medical history significant for diabetes mellitus who presents to [facility] original for decreased movement who ultimately had section secondary to worries of severe preeclampsia. Patient currently is just out of the operating room within 30 minutes. Patient other than feeling dizzy and having a very mild headache feels well. Lower extremity cannot be moved yet. Patient states that she has not on any blood pressure medications at home and for the past 6 months has been on insulin when she was previously on metformin. It appears during her that her diabetic requirement increased. Currently patient denies any chest pain, shortness of breath, she states she has a very mild headache but not significant as well as some dizziness. Patient denies any nausea vomiting at this time. Objective Physical exam General: Patient is laying in bed and answers questions appropriately Mentation: Patient is alert and oriented 4, Head: Normocephalic atraumatic Eyes: EOMI, pupils reactive to light Neck: Supple, nontender, midline Respiratory: Clear to auscultation bilaterally Cardiovascular: regular rate, no obvious murmurs Gastrointestinal: non-tender to palpation, bowel sounds heard. Neurological: Moves upper extremities spontaneously with full muscle strength, lower extremity cannot be assessed due to anesthesia at this time Skin: No new skin lesions Assessment and plan Hypertension -For now as patient is n.p.o. status post , will use as needed hydralazine Diabetes -We will use insulin sliding scale for now and accordingly adjust Disposition -Thank you for having us as hospitalist consult, will continue to follow Consultation Date/Type/Reason Admit Date/Time Nov 22, 2018 at 02:43 Date/Time of Note DATE: 11/27/18 TIME: 19:09 Past Medical History Medical History: diabetes, hypertension Home Meds Reported Medications Vit No.124/Iron/FA ( Vitamin Tablet) 1 Each Tablet, 1 EACH PO, TAB 11/22/18 NPH, Human Insulin Isophane (Humulin N Kwikpen) 100 Unit/1 Ml Insuln.pen, 24 UNIT SQ, EA 11/22/18 Insulin Regular, Human (Humulin R) 100 Unit/1 Ml Vial, 16 UNIT IJ, VIAL 11/22/18 Medications Current Medications Prenat Multivit/ Broussard/Iron/Folic Ac () 1 tab DAILY PO Last administered on 11/27/18at 08:10; Admin Dose 1 TAB; Start 11/22/18 at 09:00 Docusate Sodium (Colace) 100 mg BID PRN PO CONSTIPATION Last administered on 11/23/18at 23:25; Admin Dose 100 MG; Start 11/23/18 at 23:00 Methylergonovine Maleate (Methergine) 0.2 mg ONCE PRN IM .VAGINAL BLEEDING; Start 11/27/18 at 12:00 Carboprost Tromethamine (Hemabate) 250 mcg ONCE PRN IM .VAGINAL BLEEDING; Start 11/27/18 at 12:00 Misoprostol (Cytotec) 1,000 mcg ONCE PRN [place] .VAGINAL BLEEDING; Start 11/27/18 at 12:00 Naloxone HCl (Narcan) 0.1 mg Q2M PRN IV .RESP RATE; Start 11/27/18 at 16:00; Stop 11/28/18 at 15:59 Ketorolac Tromethamine (Toradol) 30 mg Q6H PRN IV PAIN AFTER CSECTION; Start 11/27/18 at 16:00; Stop 11/28/18 at 15:59 Hydromorphone HCl (Dilaudid) 0.2 mg Q3H PRN IV .PAIN 1-5; Start 11/27/18 at 16:00; Stop 11/28/18 at 15:59 Hydromorphone HCl (Dilaudid) 0.4 mg Q3H PRN IV .PAIN 6-10; Start 11/27/18 at 16:00; Stop 11/28/18 at 15:59 Diphenhydramine HCl (Benadryl) 25 mg Q6H PRN IV .ITCHING; Start 11/27/18 at 16:00; Stop 11/28/18 at 15:59 Ondansetron HCl (Zofran Inj) 4 mg Q6H PRN IV .NAUSEA/VOMITING Last administered on 11/27/18at 16:13; Admin Dose 4 MG; Start 11/27/18 at 16:00; Stop 11/28/18 at 15:59 Zolpidem Tartrate (Ambien) 5 mg HS MAY REPEAT X 1 PRN PO .INSOMNIA; Start 11/27/18 at 16:00; Stop 11/28/18 at 15:59 Miscellaneous Information (* Miscellaneous Pharmacy Order) Duramorph: .2 mg Sp i... GIVEN XX ; Start 11/27/18 at 16:00 Miscellaneous Information 1 ea NOTE XX ; Start 11/27/18 at 16:00 Glucose (Glutose) 15 gm Q15M PRN PO DECREASED GLUCOSE; Start 11/27/18 at 16:00 Glucose (Glutose) 22.5 gm Q15M PRN PO DECREASED GLUCOSE; Start 11/27/18 at 16:00 Dextrose (D50w Syringe) 50 ml Q15M PRN IV DECREASED GLUCOSE; Start 11/27/18 at 16:00 Glucagon (Glucagen) 1 mg Q15M PRN IM DECREASED GLUCOSE; Start 11/27/18 at 16:00 Glucose (Glutose) 15 gm Q15M PRN BUCCAL DECREASED GLUCOSE; Start 11/27/18 at 16:00 Diagnostic Test (Pha) (Accu-Chek) 1 ea 02 XX ; Start 11/28/18 at 02:00 Insulin Aspart (Novolog Insulin Pen) NOVOLOG *MODERATE* ALGORITHM Q4 SC ; Start 11/27/18 at 17:00 Hydralazine HCl (Apresoline) 10 mg Q4H PRN IV sbp >160 Last administered on 11/27/18at 17:34; Admin Dose 10 MG; Start 11/27/18 at 17:00 Lactated Ringer's 1,000 ml @ 75 mls/hr [id number] IV Last administered on 11/27at 18:37; Admin Dose 75 MLS/HR; Start 11/27/18 at 18:30 Lactated Ringer's 1,000 ml @ 125 mls/hr Q8H IV ; Start 11/27/18 at 18:39; Stop 11/27/18 at 22:38 IV Flush (NS 3 ml) 3 ml PER PROTOCOL IV ; Start 11/27/18 at 19:00 Oxytocin/Lactated Ringer's 500 ml @ 50 mls/hr Q10H IV ; Start 11/27/18 at 18 :39; Stop 11/28/18 at 04:38 Acetaminophen/ Hydrocodone Bitart ([place] (5/325)) 2 tab Q4H PRN PO .PAIN 7-10; Start 11/27/18 at 19:00 Ibuprofen (Motrin) 800 mg Q8 PO ; Start 11/27/18 at 22:00 Simethicone (Mylicon) 160 mg Q8H PRN PO .GAS; Start 11/27/18 at 19:00 Sodium Biphosphate/ Sodium Phosphate (Fleet Enema) 133 ml DAILY PRN [place] .CONSTIPATION; Start 11/27/18 at 19:00 Lanolin (Lanolin Hpa) 1 applic BEDSIDE MEDICATION PRN TOP .NIPPLES; Start 11/27/18 at 19:00 Diphtheria/ Tetanus/Acell Pertussis (Adacel) 0.5 ml ONCE ONCE IM* ; Start 11/30/18 at 09:00; Stop 11/30/18 at 09:01 Measles/Mumps/ Rubella Vaccine Live (Mmr Ii Vaccine) 0.5 ml ONCE ONCE SC* ; Start 11/30/18 at 09:00; Stop 11/30/18 at 09:01 Oxytocin/Lactated Ringer's 500 ml @ 0 mls/hr ONCE PRN IV .VAGINAL BLEEDING; Start 11/27/18 at 19:00 Methylergonovine Maleate (Methergine) 0.2 mg ONCE PRN IM .VAGINAL BLEEDING; Start 11/27/18 at 19:00 Carboprost Tromethamine (Hemabate) 250 mcg ONCE PRN IM .VAGINAL BLEEDING; Start 11/27/18 at 19:00 Misoprostol (Cytotec) 1,000 mcg ONCE PRN [place] .VAGINAL BLEEDING; Start 11/27/18 at 19:00 Allergies: Coded Allergies: No Known Allergy (Unverified , 11/22/18) Social History Alcohol Use: none Smoking Status: Never smoker Drug Use: none Exam/Review of Systems Exam Vitals Vital Signs Date Temp Pulse Resp B/P (MAP) Pulse Ox O2 O2 Flow FiO2 Time Delivery Rate 11/27/18 98.6 70 18 137/73 99 Room Air 18:47 (94) Intake and Output 11/26/18 11/26/18 11/27/18 1515:00 23:00 07:00 IntakeIntake Total 600 ml 600 ml 600 ml OutputOutput Total 1000 ml BalanceBalance -400 ml 600 ml 600 ml Results Result Diagram: 11/27/18 1200 11/25/18 1812 Results 24hrs Laboratory Tests Test 11/26/18 20:29 11/27/18 07:45 11/27/18 10:17 11/27/18 12:00 Bedside Glucose 108 70 153 White Blood Count 8.0 Red Blood Count 4.39 Hemoglobin 12.9 Hematocrit 37.0 Mean Corpuscular 84.3 Volume Mean Corpuscular 29.4 Hemoglobin Mean Corpuscular 34.9 Hemoglobin Concent Red Cell Distribution 12.9 Width Platelet Count 240 Mean Platelet Volume 10.2 Immature Granulocytes 0.400 % Neutrophils % 69.6 Lymphocytes % 20.6 Monocytes % 7.4 Eosinophils % 1.6 Basophils % 0.4 Nucleated Red Blood 0.0 Cells % Immature Granulocytes 0.030 # Neutrophils # 5.6 Lymphocytes # 1.7 Monocytes # 0.6 Eosinophils # 0.1 Basophils # 0.0 Nucleated Red Blood 0.0 Cells # Prothrombin Time 12.0 Prothrombin Time 0.9 Ratio INR International 0.88 Normalized Ratio Activated 25.8 Partial Thromboplast Time Rapid Plasma Reagin NONREACTIVE Medications Medication Current Medications Prenat Multivit/ Broussard/Iron/Folic Ac () 1 tab DAILY PO Last administered on 11/27/18at 08:10; Admin Dose 1 TAB; Start 11/22/18 at 09:00 Docusate Sodium (Colace) 100 mg BID PRN PO CONSTIPATION Last administered on 11/23/18at 23:25; Admin Dose 100 MG; Start 11/23/18 at 23:00 Methylergonovine Maleate (Methergine) 0.2 mg ONCE PRN IM .VAGINAL BLEEDING; Start 11/27/18 at 12:00 Carboprost Tromethamine (Hemabate) 250 mcg ONCE PRN IM .VAGINAL BLEEDING; Start 11/27/18 at 12:00 Misoprostol (Cytotec) 1,000 mcg ONCE PRN [place] .VAGINAL BLEEDING; Start 11/27/18 at 12:00 Naloxone HCl (Narcan) 0.1 mg Q2M PRN IV .RESP RATE; Start 11/27/18 at 16:00; Stop 11/28/18 at 15:59 Ketorolac Tromethamine (Toradol) 30 mg Q6H PRN IV PAIN AFTER CSECTION; Start 11/27/18 at 16:00; Stop 11/28/18 at 15:59 Hydromorphone HCl (Dilaudid) 0.2 mg Q3H PRN IV .PAIN 1-5; Start 11/27/18 at 16:00; Stop 11/28/18 at 15:59 Hydromorphone HCl (Dilaudid) 0.4 mg Q3H PRN IV .PAIN 6-10; Start 11/27/18 at 16:00; Stop 11/28/18 at 15:59 Diphenhydramine HCl (Benadryl) 25 mg Q6H PRN IV .ITCHING; Start 11/27/18 at 16:00; Stop 11/28/18 at 15:59 Ondansetron HCl (Zofran Inj) 4 mg Q6H PRN IV .NAUSEA/VOMITING Last administered on 11/27/18at 16:13; Admin Dose 4 MG; Start 11/27/18 at 16:00; Stop 11/28/18 at 15:59 Zolpidem Tartrate (Ambien) 5 mg HS MAY REPEAT X 1 PRN PO .INSOMNIA; Start 11/27/18 at 16:00; Stop 11/28/18 at 15:59 Miscellaneous Information (* Miscellaneous Pharmacy Order) Duramorph: .2 mg Spi... GIVEN XX ; Start 11/27/18 at 16:00 Miscellaneous Information 1 ea NOTE XX ; Start 11/27/18 at 16:00 Glucose (Glutose) 15 gm Q15M PRN PO DECREASED GLUCOSE; Start 11/27/18 at 16:00 Glucose (Glutose) 22.5 gm Q15M PRN PO DECREASED GLUCOSE; Start 11/27/18 at 16:00 Dextrose (D50w Syringe) 50 ml Q15M PRN IV DECREASED GLUCOSE; Start 11/27/18 at 16:00 Glucagon (Glucagen) 1 mg Q15M PRN IM DECREASED GLUCOSE; Start 11/27/18 at 16:00 Glucose (Glutose) 15 gm Q15M PRN BUCCAL DECREASED GLUCOSE; Start 11/27/18 at 16:00 Diagnostic Test (Pha) (Accu-Chek) 1 ea 02 XX ; Start 11/28/18 at 02:00 Insulin Aspart (Novolog Insulin Pen) NOVOLOG *MODERATE* ALGORITHM Q4 SC ; Start 11/27/18 at 17:00 Hydralazine HCl (Apresoline) 10 mg Q4H PRN IV sbp >160 Last administered on 11/27/18at 17:34; Admin Dose 10 MG; Start 11/27/18 at 17:00 Lactated Ringer's 1,000 ml @ 75 mls/hr [id number] IV Last administered on 11/27/18at 18:37; Admin Dose 75 MLS/HR; Start 11/27/18 at 18:30 Lactated Ringer's 1,000 ml @ 125 mls/hr Q8H IV ; Start 11/27/18 at 18:39; Stop 11/27/18 at 22:38 IV Flush (NS 3 ml) 3 ml PER PROTOCOL IV ; Start 11/27/18 at 19:00 Oxytocin/Lactated Ringer's 500 ml @ 50 mls/hr Q10H IV ; Start 11/27/18 at 18:39; Stop 11/28/18 at 04:38 Acetaminophen/ Hydrocodone Bitart ([place] (5/325)) 2 tab Q4H PRN PO .PAIN 7-10; Start 11/27/18 at 19:00 Ibuprofen (Motrin) 800 mg Q8 PO ; Start 11/27/18 at 22:00 Simethicone (Mylicon) 160 mg Q8H PRN PO .GAS; Start 11/27/18 at 19:00 Sodium Biphosphate/ Sodium Phosphate (Fleet Enema) 133 ml DAILY PRN [place] .CONSTIPATION; Start 11/27/18 at 19:00 Lanolin (Lanolin Hpa) 1 applic BEDSIDE MEDICATION PRN TOP .NIPPLES; Start 11/27/18 at 19:00 Diphtheria/ Tetanus/Acell Pertussis (Adacel) 0.5 ml ONCE ONCE IM* ; Start 11/30/18 at 09:00; Stop 11/30/18 at 09:01 Measles/Mumps/ Rubella Vaccine Live (Mmr Ii Vaccine) 0.5 ml ONCE ONCE SC* ; Start 11/30/18 at 09:00; Stop 11/30/18 at 09:01 Oxytocin/Lactated Ringer's 500 ml @ 0 mls/hr ONCE PRN IV .VAGINAL BLEEDING; Start 11/27/18 at 19:00 Methylergonovine Maleate (Methergine) 0.2 mg ONCE PRN IM .VAGINAL BLEEDING; Start 11/27/18 at 19:00 Carboprost Tromethamine (Hemabate) 250 mcg ONCE PRN IM .VAGINAL BLEEDING; Start 11/27/18 at 19:00 Misoprostol (Cytotec) 1,000 mcg ONCE PRN [place] .VAGINAL BLEEDING; Start 11/27/18 at 19:00 JERRELL VALENTINE Nov 27, 2018 19:09
[2018-11-27 19:30] VITALS: BP 122/64; PULSE 66; RESP 18
[2018-11-27 20:30] VITALS: BP 114/64; PULSE 69; RESP 18
[2018-11-27 21:00] VITALS: BP 127/64; PULSE 86; RESP 16
[2018-11-27] MEDS ORDERED: MAGNESIUM SULFATE 4 GM/100 ML 100 ML IV SCH (21:30)
[2018-11-27] MEDS ORDERED: CA GLUCONATE (GM) 10% 10ML INJ IV PRN (21:30)
[2018-11-27 22:00] VITALS: BP 124/69; PULSE 89; RESP 20
[2018-11-27] MEDS: IBUPROFEN 800 MG TAB PO SCH (22:00)
[2018-11-27 23:00] VITALS: BP 121/67; PULSE 74; RESP 20
[2018-11-28] VITALS (15 sets, daily range): BP systolic 99–137; BP diastolic 56–79; PULSE 66–84; RESP 17–20
[2018-11-28] MEDS: MAGNESIUM SULFATE 20 GM/500 ML 500 ML IV SCH ×2 (00:40→11:54)
[2018-11-28] MEDS: INSULIN ASPART [NOVOLOG] 3 ML PEN SC SCH ×6 (01:00→21:00)
[2018-11-28] MEDS: ACCU-CHEK XX SCH ×2 (02:00→08:00)
[2018-11-28] MEDS: IBUPROFEN 800 MG TAB PO SCH ×3 (06:00→21:50)
[2018-11-28] MEDS: LACTATED RINGER'S 1,000 ML IV SCH (07:50)
[2018-11-28] MEDS: PRENATAL VITAMIN PO SCH (10:08)
[2018-11-28] MEDS ORDERED: INSULIN ASPART [NOVOLOG] 3 ML PEN SC SCH (12:00)
--- NOTE | 2018-11-28 15:46 | QN ---
Documentation Comment Postop day #1 Status post primary for chronic hypertension with superimposed preeclampsia Patient stable and afebrile Vital signs stable VS - Last 72 Hours, by Label Date Temp Pulse Resp B/P (MAP) Pulse Ox O2 O2 Flow FiO2 Time Delivery Rate 11/28/18 98.0 84 20 130/73 98 Room Air 15:27 (92) 11/28/18 98.2 74 20 118/74 98 Room Air 12:00 (89) 11/28/18 68 18 118/71 97 Room Air 11:00 (87) 11/28/18 68 18 114/71 96 Room Air 10:00 (85) 11/28/18 74 20 114/79 98 Room Air 09:00 (91) 11/28/18 70 17 117/71 96 Room Air 08:00 (86) 11/28/18 98.2 68 20 112/66 97 Room Air 07:30 (81) 11/28/18 70 20 99/58 (72) Room Air 05:00 11/28/18 98.0 72 20 102/56 96 Room Air 04:00 (71) 11/28/18 72 18 101/62 Room Air 03:00 (75) 11/28/18 77 20 116/62 Room Air 02:00 (80) 11/28/18 72 18 109/65 Room Air 01:03 (80) 11/28/18 98.1 71 20 107/66 95 Room Air 00:00 (80) 11/27/18 74 20 121/67 95 Room Air 23:00 (85) 11/27/18 89 20 124/69 Room Air 22:00 (87) 11/27/18 98.4 86 16 127/64 96 Room Air 21:00 (85) 11/27/18 97.9 69 18 114/64 98 20:30 (81) 11/27/18 66 18 122/64 97 Room Air 19:30 (83) 11/27/18 98.6 70 18 137/73 99 Room Air 18:47 (94) Hematology - 72 Hrs Test 11/25/18 18:13 11/27/18 12:00 11/28/18 06:11 Hematocrit 40.4 % (37.0-47.0) 37.0 % (37.0-47.0) 35.5 % (37.0-47.0) L Hemoglobin 13.8 12.9 12.3 g/dl (12.0-16.0) g/dl (12.0-16.0) g/dl (12.0-16.0) Mean Corpuscular 29.1 pg (29.0-33.0) 29.4 29.1 Hemoglobin pg (29.0-33.0) pg (29.0-33.0) Mean Corpuscular 34.2 34.9 34.6 Hemoglobin Concent g/dl (32.0-37.0) g/dl (32.0-37.0) g/dl (32.0-37.0) Mean Corpuscular 85.1 84.3 84.1 Volume fl (82.0-101.0) fl (82.0-101.0) fl (82.0-101.0) Mean Platelet 10.8 fl (7.4-10.4) 10.2 fl (7.4-10.4) 10.4 fl (7.4-10.4) Volume H Platelet Count 237 240 239 10^3/UL (140-415) 10^3/UL (140-415) 10^3/UL (140-415) Red Blood Count 4.75 4.39 4.22 10^6/ul (4.20-5.40) 10^6/ul (4.20-5.40 10^6/ul (4.20-5.40 ) ) Red Cell 12.9 % (11.5-14.5) 12.9 % (11.5-14.5) 13.2 % (11.5-14.5) Distribution Width White Blood Count 7.8 8.0 13.0 10^3/ul (4.8-10.8) 10^3/ul (4.8-10.8) 10^3/ul (4.8-10.8) #H Chemistry Test 11/25/18 18:12 11/25/18 20:50 11/26/18 07:52 11/26/18 10:47 Sodium Level 139 mmol/L (135-144 ) Potassium 4.0 Level mmol/L (3.5-5.1 ) Chloride Level 107 mmol/L (97-110) Carbon Dioxide 21 Level mmol/L (21-31) Anion Gap 11 (5-13) Blood Urea 13 mg/dl (7-20) Nitrogen Creatinine 0.46 mg/dl (0.44-1.0 0) Est Glomerular > 60 Filtrat mL/min (>60) Rate mL/min Glucose Level 69 mg/dl (70-220) L Uric Acid 3.2 mg/dl (3.1-7.9) Calcium Level 8.6 mg/dl (8.4-10.2 ) Total 0.3 Bilirubin mg/dl (0.2-1.3) Direct 0.00 Bilirubin mg/dl (0.00-0.2 0) Indirect 0.3 Bilirubin mg/dl (0-1.1) Aspartate Amino 32 IU/L (15-46) Transf (AST/SGO T) Alanine 31 IU/L (13-69) Aminotransferas e (ALT/SGPT) Alkaline 140 Phosphatase IU/L (42-121) H Total Protein 6.6 g/dl (6.1-8.1) Albumin 3.3 g/dl (3.3-4.9) Globulin 3.30 g/dl (1.3-3.2) H Albumin/Globuli 1.00 n Ratio Bedside 95 65 96 Glucose mg/dL (70-220) mg/dL (70-220) mg/dL (70-220) L Test 11/26/18 15:20 11/26/18 20:29 11/27/18 07:45 11/27/18 10:17 Bedside 106 108 70 153 Glucose mg/dL (70-220) mg/dL (70-220) mg/dL (70-220) mg/dL (70-220) Test 11/27/18 18:43 11/27/18 21:30 11/28/18 00:41 11/28/18 01:14 Sodium Level 135 mmol/L (135-144 ) Potassium 4.6 Level mmol/L (3.5-5.1 ) Chloride Level 105 mmol/L (97-110) Carbon Dioxide 19 Level mmol/L (21-31) L Anion Gap 11 (5-13) Blood Urea 10 mg/dl (7-20) Nitrogen Creatinine 0.46 mg/dl (0.44-1.0 0) Glucose Level 134 mg/dl (70-220) Calcium Level 7.8 mg/dl (8.4-10.2 ) L Phosphorus 4.3 Level mg/dl (2.5-4.9) Magnesium 4.1 4.6 Level mg/dl (1.7-2.5) mg/dl (1.7-2.5 H ) H Albumin 3.3 g/dl (3.3-4.9) Bedside 139 119 Glucose mg/dL (70-220) mg/dL (70-220) Test 11/28/18 05:02 11/28/18 06:11 11/28/18 07:55 11/28/18 12:19 Bedside 87 72 Glucose mg/dL (70-220) mg/dL (70-220) Phosphorus 4.8 Level mg/dl (2.5-4.9 ) Magnesium 5.5 5.4 Level mg/dl (1.7-2.5 mg/dl (1.7-2.5 ) *H ) *H Test 11/28/18 12:39 Bedside 93 Glucose mg/dL (70-220) Abdomen soft, fundus firm Incision clean,dry,intact Extremities nontender Assessment and plan Patient stable and doing well Encouraged to ambulate Continue with routine postop care ERICKA DIAZ MD Nov 28, 2018 15:46
--- NOTE | 2018-11-28 16:02 | PN ---
Date/Time of Note Date/Time of Note DATE: 11/28/18 TIME: 16:00 Objective Vitals Vital Signs Date Temp Pulse Resp B/P (MAP) Pulse Ox O2 O2 Flow FiO2 Time Delivery Rate 11/28/18 98.0 84 20 130/73 98 Room Air 15:27 (92) Intake and Output 11/27/18 11/27/18 11/28/18 1515:00 23:00 07:00 IntakeIntake Total 617 ml 1625 ml 750 ml OutputOutput Total 2154 ml 350 ml BalanceBalance 617 ml -529 ml 400 ml Results Result Diagram: 11/28/18 0611 11/27/18 1843 Medications Medications Current Medications Prenat Multivit/ [place]/Iron/Folic Ac () 1 tab DAILY PO Last administered on 11/28/18at 10:08; Admin Dose 1 TAB; Start 11/22/18 at 09:00 Docusate Sodium (Colace) 100 mg BID PRN PO CONSTIPATION Last administered on 11/23/18at 23:25; Admin Dose 100 MG; Start 11/23/18 at 23:00 Methylergonovine Maleate (Methergine) 0.2 mg ONCE PRN IM .VAGINAL BLEEDING; Start 11/27/18 at 12:00 Carboprost Tromethamine (Hemabate) 250 mcg ONCE PRN IM .VAGINAL BLEEDING; Start 11/27/18 at 12:00 Misoprostol (Cytotec) 1,000 mcg ONCE PRN ID .VAGINAL BLEEDING; Start 11/27/18 at 12:00 Miscellaneous Information (* Miscellaneous Pharmacy Order) Duramorph: .2 mg Spi... GIVEN XX ; Start 11/27/18 at 16:00 Miscellaneous Information 1 ea NOTE XX ; Start 11/27/18 at 16:00 Glucose (Glutose) 15 gm Q15M PRN PO DECREASED GLUCOSE; Start 11/27/18 at 16:00 Glucose (Glutose) 22.5 gm Q15M PRN PO DECREASED GLUCOSE; Start 11/27/18 at 16:00 Dextrose (D50w Syringe) 50 ml Q15M PRN IV DECREASED GLUCOSE; Start 11/27/18 at 16:00 Glucagon (Glucagen) 1 mg Q15M PRN IM DECREASED GLUCOSE; Start 11/27/18 at 16:00 Glucose (Glutose) 15 gm Q15M PRN BUCCAL DECREASED GLUCOSE; Start 11/27/18 at 16:00 Diagnostic Test (Pha) (Accu-Chek) 1 ea 02 XX Last administered on 11/28/18at 08:00; Admin Dose 1 EA; Start 11/28/18 at 02:00 Hydralazine HCl (Apresoline) 10 mg Q4H PRN IV sbp >160 Last administered on 11/27/18at 17:34; Admin Dose 10 MG; Start 11/27/18 at 17:00 IV Flush (NS 3 ml) 3 ml PER PROTOCOL IV ; Start 11/27/18 at 19:00 Acetaminophen/ Hydrocodone Bitart ([place] (5/325)) 2 tab Q4H PRN PO .PAIN 7-10; Start 11/27/18 at 19:00 Ibuprofen (Motrin) 800 mg Q8 PO ; Start 11/27/18 at 22:00 Simethicone (Mylicon) 160 mg Q8H PRN PO .GAS; Start 11/27/18 at 19:00 Sodium Biphosphate/ Sodium Phosphate (Fleet Enema) 133 ml DAILY PRN ID .CONSTIPATION; Start 11/27/18 at 19:00 Lanolin (Lanolin Hpa) 1 applic BEDSIDE MEDICATION PRN TOP .NIPPLES Last administered on 11/28/18at 10:10; Admin Dose 1 APPLIC; Start 11/27/18 at 19:00 Diphtheria/ Tetanus/Acell Pertussis (Adacel) 0.5 ml ONCE ONCE IM* ; Start 11/30/18 at 09:00; Stop 11/30/18 at 09:01 Measles/Mumps/ Rubella Vaccine Live (Mmr Ii Vaccine) 0.5 ml ONCE ONCE SC* ; Start 11/30/18 at 09:00; Stop 11/30/18 at 09:01 Oxytocin/Lactated Ringer's 500 ml @ 0 mls/hr ONCE PRN IV .VAGINAL BLEEDING; Start 11/27/18 at 19:00 Methylergonovine Maleate (Methergine) 0.2 mg ONCE PRN IM .VAGINAL BLEEDING; Start 11/27/18 at 19:00 Carboprost Tromethamine (Hemabate) 250 mcg ONCE PRN IM .VAGINAL BLEEDING; Start 11/27/18 at 19:00 Misoprostol (Cytotec) 1,000 mcg ONCE PRN ID .VAGINAL BLEEDING; Start 11/27/18 at 19:00 IV Flush (NS 3 ml) 3 ml PER PROTOCOL IV ; Start 11/27/18 at 21:30 Insulin Aspart (Novolog Insulin Pen) NOVOLOG *MILD* ALGORITHM WITH MEALS BEDTIME SC ; Start 11/28/18 at 11:50 VTE Prophylaxis Risk score (from Ns)>0 risk: 5 SCD applied (from Ns): Yes Lines/Catheters IV Catheter Type: Stokes in Place: No Assessment/Plan Hospital Course Subjective Patient doing well post , minimal to no headache Objective Physical exam General: Patient is laying in bed and answers questions appropriately Mentation: Patient is alert and oriented 4, Head: Normocephalic atraumatic Eyes: EOMI, pupils reactive to light Neck: Supple, nontender, midline Respiratory: Clear to auscultation bilaterally Cardiovascular: regular rate, no obvious murmurs Gastrointestinal: non-tender to palpation, bowel sounds heard. Neurological: Able to move all extremities Skin: No new skin lesions Assessment and plan Hypertension -Normotensive now -As needed hydralazine Leukocytosis -Likely inflammatory secondary to yesterday -We will get UA, although no signs of infection or fever otherwise Diabetes -We will use insulin sliding scale for now and accordingly adjust -Patient's sugars have been remarkably under control with no insulin, patient may not need insulin on discharge Disposition -Thank you for having us as hospitalist consult, will continue to follow JERRELL VALENTINE Nov 28, 2018 16:02
[2018-11-29 00:07] VITALS: BP 132/74; PULSE 64; RESP 18
[2018-11-29] MEDS: HYDROCODONE/APAP (5/325) TAB PO PRN ×2 (04:29→08:23)
[2018-11-29 04:32] VITALS: BP 113/71; PULSE 63; RESP 17
[2018-11-29] MEDS: IBUPROFEN 800 MG TAB PO SCH ×3 (05:43→22:11)
[2018-11-29] MEDS: INSULIN ASPART [NOVOLOG] 3 ML PEN SC SCH ×4 (08:05→21:00)
[2018-11-29] MEDS: PRENATAL VITAMIN PO SCH (08:22)
[2018-11-29] MEDS: DOCUSATE SODIUM 100 MG CAP PO PRN ×2 (08:22→22:11)
--- NOTE | 2018-11-29 09:07 | DS ---
Date/Time of Note Date/Time of Note DATE: 11/29/18 TIME: 09:05 Discharge Summary Admission/Discharge Info Admit Date/Time Nov 22, 2018 at 02:43 Discharge Date/Time Discharge Diagnosis PRE TERM JOSE D DELIVERY Patient Condition: Stable Hospital Course UN REMARKABLE. DMANAGEMENT OF DM AND HTN BY HOSPITALIST Home Meds Reported Medications Vit No.124/Iron/FA ( Vitamin Tablet) 1 Each Tablet, 1 EACH PO, TAB 11/22/18 NPH, Human Insulin Isophane (Humulin N Kwikpen) 100 Unit/1 Ml Insuln.pen, 24 UNIT SQ, EA 11/22/18 Insulin Regular, Human (Humulin R) 100 Unit/1 Ml Vial, 16 UNIT IJ, VIAL 11/22/18 Primary Care Provider Care Physician No Primary Pending Labs Laboratory Tests Test 11/28/18 12:19 11/28/18 12:39 11/28/18 18:25 11/28/18 20:58 Magnesium 5.4 Level mg/dl (1.7-2.5) Bedside 93 94 118 Glucose mg/dL (70-220) mg/dL (70-220) mg/dL (70-220) Test 11/29/18 08:02 11/29/18 08:16 White Blood 8.1 Count 10^3/ul (4.8-10 .8) Red Blood 3.98 Count 10^6/ul (4.20-5 .40) Hemoglobin 11.6 g/dl (12.0-16.0 ) Hematocrit 34.4 % (37.0-47.0) Mean 86.4 Corpuscular fl (82.0-101.0) Volume Mean 29.1 Corpuscular pg (29.0-33.0) Hemoglobin Mean 33.7 Corpuscular g/dl (32.0-37.0 Hemoglobin Conc ) ent Red Cell 13.2 Distribution % (11.5-14.5) Width Platelet Count 211 10^3/UL (140-41 5) Mean Platelet 10.2 Volume fl (7.4-10.4) Immature 0.400 Granulocytes % % (0.001-0.429) Neutrophils % 63.7 % (39.0-77.0) Lymphocytes % 26.2 % (15.0-51.0) Monocytes % 7.8 % (0.0-11.0) Eosinophils % 1.7 % (0.0-7.0) Basophils % 0.2 % (0.0-2.0) Nucleated Red 0.0 Blood Cells % /100WBC (0.0-0. 0) Immature 0.030 Granulocytes # 10^3/ul (0.0-0. 031) Neutrophils # 5.1 10^3/ul (1.6-7. 5) Lymphocytes # 2.1 10^3/ul (0.8-2. 9) Monocytes # 0.6 10^3/ul (0.3-0. 9) Eosinophils # 0.1 10^3/ul (0.0-0. 5) Basophils # 0.0 10^3/ul (0.0-0. 1) Nucleated Red 0.0 Blood Cells # 10^3/ul (0.0-0. 0) Bedside 81 Glucose mg/dL (70-220) ASHLY WHITESIDE MD Nov 29, 2018 09:07
--- NOTE | 2018-11-29 12:11 | PN ---
Date/Time of Note Date/Time of Note DATE: 11/29/18 TIME: 12:09 Objective Vitals Vital Signs Date Temp Pulse Resp B/P (MAP) Pulse Ox O2 O2 Flow FiO2 Time Delivery Rate 11/29/18 97.6 63 17 113/71 Room Air 04:32 (85) 11/28/18 97 16:00 Intake and Output 11/28/18 11/28/18 11/29/18 1515:00 23:00 07:00 IntakeIntake Total 2980 ml 375 ml OutputOutput Total 1810 ml 650 ml 250 ml BalanceBalance 1170 ml -275 ml -250 ml Results Result Diagram: 11/29/1880111/29/18801 Medications Medications Current Medications Prenat Multivit/ [place]/Iron/Folic Ac () 1 tab DAILY PO Last administered on 11/29/18at 08:22; Admin Dose 1 TAB; Start 11/22/18 at 09:00 Docusate Sodium (Colace) 100 mg BID PRN PO CONSTIPATION Last administered on 11/29/18at 08:22; Admin Dose 100 MG; Start 11/23/18 at 23:00 Methylergonovine Maleate (Methergine) 0.2 mg ONCE PRN [place] .VAGINAL BLEEDING; Start 11/27/18 at 12:00 Carboprost Tromethamine (Hemabate) 250 mcg ONCE PRN IM .VAGINAL BLEEDING; Start 11/27/18 at 12:00 Misoprostol (Cytotec) 1,000 mcg ONCE PRN [place] .VAGINAL BLEEDING; Start 11/27/18 at 12:00 Miscellaneous Information (* Miscellaneous Pharmacy Order) Duramorph: .2 mg Spi... GIVEN XX ; Start 11/27/18 at 16:00 Miscellaneous Information 1 ea NOTE XX ; Start 11/27/18 at 16:00 Glucose (Glutose) 15 gm Q15M PRN PO DECREASED GLUCOSE; Start 11/27/18 at 16:00 Glucose (Glutose) 22.5 gm Q15M PRN PO DECREASED GLUCOSE; Start 11/27/18 at 16:00 Dextrose (D50w Syringe) 50 ml Q15M PRN IV DECREASED GLUCOSE; Start 11/27/18 at 16:00 Glucagon (Glucagen) 1 mg Q15M PRN IM DECREASED GLUCOSE; Start 11/27/18 at 16:00 Glucose (Glutose) 15 gm Q15M PRN BUCCAL DECREASED GLUCOSE; Start 11/27/18 at 16:00 Diagnostic Test (Pha) (Accu-Chek) 1 ea 02 XX Last administered on 11/28/18at 08:00; Admin Dose 1 EA; Start 11/28/18 at 02:00 Hydralazine HCl (Apresoline) 10 mg Q4H PRN IV sbp >160 Last administered on 11/27/18at 17:34; Admin Dose 10 MG; Start 11/27/18 at 17:00 IV Flush (NS 3 ml) 3 ml PER PROTOCOL IV ; Start 11/27/18 at 19:00 Acetaminophen/ Hydrocodone Bitart ([place] (5/325)) 2 tab Q4H PRN PO .PAIN 7-10 Last administered on 11/29/18at 08:23; Admin Dose 2 TAB; Start 11/27/18 at 19:00 Ibuprofen (Motrin) 800 mg Q8 PO Last administered on 11/29/18at 05:43; Admin Dose 800 MG; Start 11/27/18 at 22:00 Simethicone (Mylicon) 160 mg Q8H PRN PO .GAS; Start 11/27/18 at 19:00 Sodium Biphosphate/ Sodium Phosphate (Fleet Enema) 133 ml DAILY PRN [place] .CONSTIPATION; Start 11/27/18 at 19:00 Lanolin (Lanolin Hpa) 1 applic BEDSIDE MEDICATION PRN [place] .NIPPLES Last administered on 11/28/18at 10:10; Admin Dose 1 APPLIC; Start 11/27/18 at 19:00 Diphtheria/ Tetanus/Acell Pertussis (Adacel) 0.5 ml ONCE ONCE IM* ; Start 11/30/18 at 09:00; Stop 11/30/18 at 09:01 Measles/Mumps/ Rubella Vaccine Live (Mmr Ii Vaccine) 0.5 ml ONCE ONCE SC* ; Start 11/30/18 at 09:00; Stop 11/30/18 at 09:01 Oxytocin/Lactated Ringer's 500 ml @ 0 mls/hr ONCE PRN IV .VAGINAL BLEEDING; Start 11/27/18 at 19:00 Methylergonovine Maleate (Methergine) 0.2 mg ONCE PRN IM .VAGINAL BLEEDING; Start 11/27/18 at 19:00 Carboprost Tromethamine (Hemabate) 250 mcg ONCE PRN IM .VAGINAL BLEEDING; Start 11/27/18 at 19:00 Misoprostol (Cytotec) 1,000 mcg ONCE PRN [place] .VAGINAL BLEEDING; Start 11/27/18 at 19:00 IV Flush (NS 3 ml) 3 ml PER PROTOCOL IV ; Start 11/27/18 at 21:30 Insulin Aspart (Novolog Insulin Pen) NOVOLOG *MILD* ALGORITHM WITH MEALS BEDTIME SC ; Start 11/28/18 at 11:50 VTE Prophylaxis Risk score (from [facility] [place])>0 risk: 5 SCD applied (from [facility] [place]): No SCD contraindication: other Lines/Catheters IV Catheter Type: Stokes in Place: No Assessment/Plan Hospital Course Subjective Patient doing well post , minimal to no headache Objective Physical exam General: Patient is laying in bed and answers questions appropriately Mentation: Patient is alert and oriented 4, Head: Normocephalic atraumatic Eyes: EOMI, pupils reactive to light Neck: Supple, nontender, midline Respiratory: Clear to auscultation bilaterally Cardiovascular: regular rate, no obvious murmurs Gastrointestinal: non-tender to palpation, bowel sounds heard. Neurological: Able to move all extremities Skin: No new skin lesions Assessment and plan Hypertension -Normotensive now -As needed hydralazine Leukocytosis, resolved -Likely inflammatory secondary to -UA negative, back to within normal limits Diabetes -Patient has not needed insulin during the stay after , patient can likely be taken off insulin at home, patient will need to follow-up with her primary care provider and they will make a decision if she needs to restart her metformin, patient did not need metformin during the stay either however it has only been 1-2 days. Disposition -Thank you for having us as hospitalist consult, will continue to follow JERRELL VALENTINE Nov 29, 2018 12:11
[2018-11-29 16:00] VITALS: BP 128/71; PULSE 68; RESP 18
[2018-11-29 20:00] VITALS: BP 136/77; PULSE 65; RESP 18
[2018-11-30] VITALS (9 sets, daily range): BP systolic 109–203; BP diastolic 57–89; PULSE 54–63; RESP 16–19
[2018-11-30] MEDS: ACCU-CHEK XX SCH (02:00)
[2018-11-30] MEDS: IBUPROFEN 800 MG TAB PO SCH ×3 (06:52→22:24)
[2018-11-30] MEDS: INSULIN ASPART [NOVOLOG] 3 ML PEN SC SCH ×4 (08:05→21:00)
[2018-11-30] MEDS ORDERED: MEASLES,MUMPS,RUBELLA VACCINE INJ SC* ONE (09:00)
[2018-11-30] MEDS ORDERED: DIPHTH/TET/ACEL PERTUSS (ADULT) 0.5 ML VIAL IM* ONE (09:00)
[2018-11-30] MEDS: PRENATAL VITAMIN PO SCH (11:06)
[2018-11-30] MEDS: DOCUSATE SODIUM 100 MG CAP PO PRN (11:06)
--- NOTE | 2018-11-30 11:39 | QN ---
Documentation Comment doing well vss abd soft d/c home today once cleared by hospitalist ASHLY WHITESIDE MD Nov 30, 2018 11:39
--- NOTE | 2018-11-30 14:32 | PN ---
Date/Time of Note Date/Time of Note DATE: 11/30/18 TIME: 14:31 Objective Vitals Vital Signs Date Temp Pulse Resp B/P (MAP) Pulse Ox O2 O2 Flow FiO2 Time Delivery Rate 11/30/18 63 19 132/75 Room Air 11:36 (94) 11/30/18 98.5 08:00 11/28/18 97 16:00 Results Result Diagram: 11/30/18 0729 11/30/18 0729 Medications Medications Current Medications Prenat Multivit/ [place]/Iron/Folic Ac () 1 tab DAILY PO Last ad ministered on 11/30/18at 11:06; Admin Dose 1 TAB; Start 11/22/18 at 09:00 Docusate Sodium (Colace) 100 mg BID PRN PO CONSTIPATION Last administered on 11/30/18at 11:06; Admin Dose 100 MG; Start 11/23/18 at 23:00 Methylergonovine Maleate (Methergine) 0.2 mg ONCE PRN IM .VAGINAL BLEEDING; Start 11/27/18 at 12:00 Carboprost Tromethamine (Hemabate) 250 mcg ONCE PRN IM .VAGINAL BLEEDING; Start 11/27/18 at 12:00 Misoprostol (Cytotec) 1,000 mcg ONCE PRN [place] .VAGINAL BLEEDING; Start 11/27/18 at 12:00 Miscellaneous Information (* Miscellaneous Pharmacy Order) Duramorph: .2 mg Spi... GIVEN XX ; Start 11/27/18 at 16:00 Miscellaneous Information 1 ea NOTE XX ; Start 11/27/18 at 16:00 Glucose (Glutose) 15 gm Q15M PRN PO DECREASED GLUCOSE; Start 11/27/18 at 16:00 Glucose (Glutose) 22.5 gm Q15M PRN PO DECREASED GLUCOSE; Start 11/27/18 at 16:00 Dextrose (D50w Syringe) 50 ml Q15M PRN IV DECREASED GLUCOSE; Start 11/27/18 at 16:00 Glucagon (Glucagen) 1 mg Q15M PRN IM DECREASED GLUCOSE; Start 11/27/18 at 16:00 Glucose (Glutose) 15 gm Q15M PRN BUCCAL DECREASED GLUCOSE; Start 11/27/18 at 16:00 Diagnostic Test (Pha) (Accu-Chek) 1 ea 02 XX Last administered on 11/28/18at 08:00; Admin Dose 1 EA; Start 11/28/18 at 02:00 Hydralazine HCl (Apresoline) 10 mg Q4H PRN IV sbp >160 Last administered on 11/27/18at 17:34; Admin Dose 10 MG; Start 11/27/18 at 17:00 IV Flush (NS 3 ml) 3 ml PER PROTOCOL IV ; Start 11/27/18 at 19:00 Acetaminophen/ Hydrocodone Bitart ([place] (5/325)) 2 tab Q4H PRN PO .PAIN 7-10 Last administered on 11/29/18 08:23; Admin Dose 2 TAB; Start 11/27/18 at 19:00 Ibuprofen (Motrin) 800 mg Q8 PO Last administered on 11/30/18at 06:52; Admin Dose 800 MG; Start 11/27/18 at 22:00 Simethicone (Mylicon) 160 mg Q8H PRN PO .GAS; Start 11/27/18 at 19:00 Sodium Biphosphate/ Sodium Phosphate (Fleet Enema) 133 ml DAILY PRN [place] .CONSTIPATION; Start 11/27/18 at 19:00 Lanolin (Lanolin Hpa) 1 applic BEDSIDE MEDICATION PRN [place] .NIPPLES Last administered on 11/28/18at 10:10; Admin Dose 1 APPLIC; Start 11/27/18 at 19:00 Oxytocin/Lactated Ringer's 500 ml @ 0 mls/hr ONCE PRN IV .VAGINAL BLEEDING; Start 11/27/18 at 19:00 Methylergonovine Maleate (Methergine) 0.2 mg ONCE PRN IM .VAGINAL BLEEDING; Start 11/27/18 at 19:00 Carboprost Tromethamine (Hemabate) 250 mcg ONCE PRN IM .VAGINAL BLEEDING; Start 11/27/18 at 19:00 Misoprostol (Cytotec) 1,000 mcg ONCE PRN [place] .VAGINAL BLEEDING; Start 11/27/18 at 19:00 IV Flush (NS 3 ml) 3 ml PER PROTOCOL IV ; Start 11/27/18 at 21:30 Insulin Aspart (Novolog Insulin Pen) NOVOLOG *MILD* ALGORITHM WITH MEALS BEDTIME SC ; Start 11/28/18 at 11:50 VTE Prophylaxis Risk score (from Nsg)>0 risk: 1 SCD applied (from Nsg): No SCD contraindication: other Lines/Catheters IV Catheter Type: Stokes in Place: No Assessment/Plan Hospital Course Subjective Patient doing well post , feeling well, but some episodes of elevated BP today Objective Physical exam General: Patient is laying in bed and answers questions appropriately Mentation: Patient is alert and oriented 4, Head: Normocephalic atraumatic Eyes: EOMI, pupils reactive to light Neck: Supple, nontender, midline Respiratory: Clear to auscultation bilaterally Cardiovascular: regular rate, no obvious murmurs Gastrointestinal: non-tender to palpation, bowel sounds heard. Neurological: Able to move all extremities Skin: No new skin lesions Assessment and plan Hypertension -Normotensive now, however had hypertension in the 150s and 170s earlier today -As needed hydralazine Leukocytosis, resolved -Likely inflammatory secondary to -UA negative, back to within normal limits Diabetes -Patient has not needed insulin during the stay after , patient can likely be taken off insulin at home, patient will need to follow-up with her primary care provider and they will make a decision if she needs to restart her metformin, patient did not need metformin during the stay either however it has only been 1-2 days. Disposition -Thank you for having us as hospitalist consult, will continue to follow -Monitor today for elevated blood pressure, since patient is normotensive will hold off on medication for now, okay to DC tomorrow if normotensive continues. JERRELL VALENTINE Nov 30, 2018 14:32
[2018-11-30] MEDS ORDERED: hydrALAzine 20 MG INJ IM ONE (20:30)
[2018-12-01] MEDS: ACCU-CHEK XX SCH ×2 (02:08→21:30)
[2018-12-01 04:00] VITALS: BP 157/75; PULSE 61; RESP 20
[2018-12-01] MEDS: IBUPROFEN 800 MG TAB PO SCH ×3 (06:19→22:41)
[2018-12-01 06:23] VITALS: BP 121/79; PULSE 68; RESP 20
[2018-12-01] MEDS: INSULIN ASPART [NOVOLOG] 3 ML PEN SC SCH ×3 (08:05→18:05)
[2018-12-01 08:30] VITALS: BP 142/75; PULSE 62; RESP 18
[2018-12-01] MEDS ORDERED: NIFEdipine (XL) 30 MG TAB PO SCH (09:00)
[2018-12-01] MEDS: PRENATAL VITAMIN PO SCH (09:43)
[2018-12-01 09:44] VITALS: BP 124/71; PULSE 74
--- NOTE | 2018-12-01 14:09 | PN ---
Date/Time of Note Date/Time of Note DATE: 12/01/18 TIME: 14:08 Objective Vitals Vital Signs Date Temp Pulse Resp B/P (MAP) Pulse Ox O2 O2 Flow FiO2 Time Delivery Rate 12/01/18 74 124/71 09:44 (88) 12/01/18 98.7 18 Room Air 08:30 11/28/18 97 16:00 Results Result Diagram: 12/01/18 0723 12/01/18 0723 Medications Medications Current Medications Prenat Multivit/ [place]/Iron/Folic Ac () 1 tab DAILY PO Last ad ministered on 12/01/18at 09:43; Admin Dose 1 TAB; Start 11/22/18 at 09:00 Docusate Sodium (Colace) 100 mg BID PRN PO CONSTIPATION Last administered on 11/30/18at 11:06; Admin Dose 100 MG; Start 11/23/18 at 23:00 Methylergonovine Maleate (Methergine) 0.2 mg ONCE PRN IM .VAGINAL BLEEDING; Start 11/27/18 at 12:00 Carboprost Tromethamine (Hemabate) 250 mcg ONCE PRN IM .VAGINAL BLEEDING; Start 11/27/18 at 12:00 Misoprostol (Cytotec) 1,000 mcg ONCE PRN [place] .VAGINAL BLEEDING; Start 11/27/18 at 12:00 Miscellaneous Information (* Miscellaneous Pharmacy Order) Duramorph: .2 mg Spi... GIVEN XX ; Start 11/27/18 at 16:00 Miscellaneous Information 1 ea NOTE XX ; Start 11/27/18 at 16:00 Glucose (Glutose) 15 gm Q15M PRN PO DECREASED GLUCOSE; Start 11/27/18 at 16:00 Glucose (Glutose) 22.5 gm Q15M PRN PO DECREASED GLUCOSE; Start 11/27/18 at 16:00 Dextrose (D50w Syringe) 50 ml Q15M PRN IV DECREASED GLUCOSE; Start 11/27/18 at 16:00 Glucagon (Glucagen) 1 mg Q15M PRN IM DECREASED GLUCOSE; Start 11/27/18 at 16:00 Glucose (Glutose) 15 gm Q15M PRN BUCCAL DECREASED GLUCOSE; Start 11/27/18 at 16:00 Diagnostic Test (Pha) (Accu-Chek) 1 ea 02 XX Last administered on 12/01/18 02:08; Admin Dose 1 EA; Start 11/28/18 at 02:00 Hydralazine HCl (Apresoline) 10 mg Q4H PRN IV sbp >160 Last administered on 11/27/18at 17:34; Admin Dose 10 MG; Start 11/27/18 at 17:00 IV Flush (NS 3 ml) 3 ml PER PROTOCOL IV ; Start 11/27/18 at 19:00 Acetaminophen/ Hydrocodone Bitart ([place] (5/325)) 2 tab Q4H PRN PO .PAIN 7-10 Last administered on 11/29/18 08:23; Admin Dose 2 TAB; Start 11/27/18 at 19:00 Ibuprofen (Motrin) 800 mg Q8 PO Last administered on 12/01/18 06:19; Admin Dose 800 MG; Start 11/27/18 at 22:00 Simethicone (Mylicon) 160 mg Q8H PRN PO .GAS; Start 11/27/18 at 19:00 Sodium Biphosphate/ Sodium Phosphate (Fleet Enema) 133 ml DAILY PRN [place] .CONSTIPATION; Start 11/27/18 at 19:00 Lanolin (Lanolin Hpa) 1 applic BEDSIDE MEDICATION PRN [place] .NIPPLES Last administered on 11/28/18 10:10; Admin Dose 1 APPLIC; Start 11/27/18 at 19:00 Oxytocin/Lactated Ringer's 500 ml @ 0 mls/hr ONCE PRN IV .VAGINAL BLEEDING; Start 11/27/18 at 19:00 Methylergonovine Maleate (Methergine) 0.2 mg ONCE PRN IM .VAGINAL BLEEDING; Start 11/27/18 at 19:00 Carboprost Tromethamine (Hemabate) 250 mcg ONCE PRN IM .VAGINAL BLEEDING; Start 11/27/18 at 19:00 Misoprostol (Cytotec) 1,000 mcg ONCE PRN [place] .VAGINAL BLEEDING; Start 11/27/18 at 19:00 IV Flush (NS 3 ml) 3 ml PER PROTOCOL IV ; Start 11/27/18 at 21:30 Insulin Aspart (Novolog Insulin Pen) NOVOLOG *MILD* ALGORITHM WITH MEALS BEDTIME SC ; Start 11/28/18 at 11:50 Nifedipine (Procardia Xl) 30 mg DAILY PO Last administered on 12/01/18at 09:44; Admin Dose 30 MG; Start 12/01/18 at 09:00 VTE Prophylaxis Risk score (from Ns)>0 risk: 1 [place] [facility] [place] SCD contraindication: other Lines/Catheters IV Catheter Type: Stokes in Place: No Assessment/Plan Hospital Course Subjective Overnight had extremely elevated blood pressure, patient feeling well otherwise stated that she was really stressed out yesterday Objective Physical exam General: Patient is laying in bed and answers questions appropriately Mentation: Patient is alert and oriented 4, Head: Normocephalic atraumatic Eyes: EOMI, pupils reactive to light Neck: Supple, nontender, midline Respiratory: Clear to auscultation bilaterally Cardiovascular: regular rate, no obvious murmurs Gastrointestinal: non-tender to palpation, bowel sounds heard. Neurological: Able to move all extremities Skin: No new skin lesions Assessment and plan Hypertension -Normotensive now, however was extremely high overnight -We will need to initiate BP meds, nifedipine XL started -As needed hydralazine Leukocytosis, resolved -Likely inflammatory secondary to -UA negative, back to within normal limits Diabetes -Patient has not needed insulin during the stay after , patient can likely be taken off insulin at home, patient will need to follow-up with her primary care provider and they will make a decision if she needs to restart her metformin, patient did not need metformin during the stay Disposition -Thank you for having us as hospitalist consult, will continue to follow -Monitor today for elevated blood pressure, okay to DC tomorrow if normotensive continues. JERRELL VALENTINE Dec 01, 2018 14:09
--- NOTE | 2018-12-01 15:14 | QN ---
Documentation Comment POD#13 is stable afebrile tolerates diet No VB +BM +voids BP 140/90 VS stable Gen NAD Abd soft NT ND Incision intact Genitalia No blood at perineum --->discharge home tomorrow --->Ambulation --->patient is still not cleared by Medicine for HTN YOJANA SALAZAR M.D. Dec 01, 2018 15:14
[2018-12-01 18:10] VITALS: BP 165/84; PULSE 72; RESP 20
[2018-12-01 21:00] VITALS: BP 166/82; PULSE 60; RESP 18
[2018-12-02] VITALS (7 sets, daily range): BP systolic 117–146; BP diastolic 70–80; PULSE 62–77; RESP 18
[2018-12-02] MEDS: IBUPROFEN 800 MG TAB PO SCH ×3 (06:00→22:43)
[2018-12-02] MEDS: INSULIN ASPART [NOVOLOG] 3 ML PEN SC SCH ×4 (08:05→21:00)
[2018-12-02] MEDS: NIFEdipine (XL) 60 MG TAB PO SCH (08:54)
[2018-12-02] MEDS: PRENATAL VITAMIN PO SCH (08:55)
--- NOTE | 2018-12-02 09:30 | PN ---
Date/Time of Note Date/Time of Note DATE: 12/02/18 TIME: 09:28 Objective Vitals Vital Signs Date Temp Pulse Resp B/P (MAP) Pulse Ox O2 O2 Flow FiO2 Time Delivery Rate 12/02/18 98.1 65 18 146/76 Room Air 06:00 (99) 12/01/18 97 21:00 Results Result Diagram: 12/02/1862612/02/18626 Medications Medications Current Medications Prenat Multivit/ [place]/Iron/Folic Ac () 1 tab DAILY PO Last administered on 12/02/18at 08:55; Admin Dose 1 TAB; Start 11/22/18 at 09:00 Docusate Sodium (Colace) 100 mg BID PRN PO CONSTIPATION Last administered on 11/30/18at 11:06; Admin Dose 100 MG; Start 11/23/18 at 23:00 Methylergonovine Maleate (Methergine) 0.2 mg ONCE PRN IM .VAGINAL BLEEDING; Start 11/27/18 at 12:00 Carboprost Tromethamine (Hemabate) 250 mcg ONCE PRN IM .VAGINAL BLEEDING; Start 11/27/18 at 12:00 Misoprostol (Cytotec) 1,000 mcg ONCE PRN [place] .VAGINAL BLEEDING; Start 11/27/18 at 12:00 Miscellaneous Information (* Miscellaneous Pharmacy Order) Duramorph: .2 mg Spi... GIVEN XX ; Start 11/27/18 at 16:00 Miscellaneous Information 1 ea NOTE XX ; Start 11/27/18 at 16:00 Glucose (Glutose) 15 gm Q15M PRN PO DECREASED GLUCOSE; Start 11/27/18 at 16:00 Glucose (Glutose) 22.5 gm Q15M PRN PO DECREASED GLUCOSE; Start 11/27/18 at 16:00 Dextrose (D50w Syringe) 50 ml Q15M PRN IV DECREASED GLUCOSE; Start 11/27/18 at 16:00 Glucagon (Glucagen) 1 mg Q15M PRN IM DECREASED GLUCOSE; Start 11/27/18 at 16:00 Glucose (Glutose) 15 gm Q15M PRN BUCCAL DECREASED GLUCOSE; Start 11/27/18 at 16:00 Diagnostic Test (Pha) (Accu-Chek) 1 ea 02 XX Last administered on 12/01/18at 21:30; Admin Dose 1 EA; Start 11/28/18 at 02:00 Hydralazine HCl (Apresoline) 10 mg Q4H PRN IV sbp >160 Last administered on 11/27/18at 17:34; Admin Dose 10 MG; Start 11/27/18 at 17:00 IV Flush (NS 3 ml) 3 ml PER PROTOCOL IV ; Start 11/27/18 at 19:00 Acetaminophen/ Hydrocodone Bitart ([place] (5/325)) 2 tab Q4H PRN PO .PAIN 7-10 Last administered on 11/29/18at 08:23; Admin Dose 2 TAB; Start 11/27/18 at 19:00 Ibuprofen (Motrin) 800 mg Q8 PO Last administered on 12/01/18at 22:41; Admin Dose 800 MG; Start 11/27/18 at 22:00 Simethicone (Mylicon) 160 mg Q8H PRN PO .GAS; Start 11/27/18 at 19:00 Sodium Biphosphate/ Sodium Phosphate (Fleet Enema) 133 ml DAILY PRN [place] .CONSTIPATION; Start 11/27/18 at 19:00 Lanolin (Lanolin Hpa) 1 applic BEDSIDE MEDICATION PRN [place] .NIPPLES Last administered on 11/28/18at 10:10; Admin Dose 1 APPLIC; Start 11/27/18 at 19:00 Oxytocin/Lactated Ringer's 500 ml @ 0 mls/hr ONCE PRN IV .VAGINAL BLEEDING; Start 11/27/18 at 19:00 Methylergonovine Maleate (Methergine) 0.2 mg ONCE PRN IM .VAGINAL BLEEDING; Start 11/27/18 at 19:00 Carboprost Tromethamine (Hemabate) 250 mcg ONCE PRN IM .VAGINAL BLEEDING; Start 11/27/18 at 19:00 Misoprostol (Cytotec) 1,000 mcg ONCE PRN [place] .VAGINAL BLEEDING; Start 11/27/18 at 19:00 IV Flush (NS 3 ml) 3 ml PER PROTOCOL IV ; Start 11/27/18 at 21:30 Insulin Aspart (Novolog Insulin Pen) NOVOLOG *MILD* ALGORITHM WITH MEALS BEDTIME SC ; Start 11/28/18 at 11:50 Nifedipine (Procardia Xl) 60 mg DAILY PO Last administered on 12/02/18at 08:54; Admin Dose 60 MG; Start 12/02/18 at 09:00 VTE Prophylaxis Risk score (from Ns)>0 risk: 2 SCD applied (from [facility] [place]): Yes Lines/Catheters IV Catheter Type: Stokes in Place: No Assessment/Plan Hospital Course Subjective Bp still mildly elevated Objective Physical exam General: Patient is laying in bed and answers questions appropriately Mentation: Patient is alert and oriented 4, Head: Normocephalic atraumatic Eyes: EOMI, pupils reactive to light Neck: Supple, nontender, midline Respiratory: Clear to auscultation bilaterally Cardiovascular: regular rate, no obvious murmurs Gastrointestinal: non-tender to palpation, bowel sounds heard. Neurological: Able to move all extremities Skin: No new skin lesions Assessment and plan Hypertension -slightly above Normotensive now, however was still high overnight -We will need to initiate BP meds, nifedipine XL started and increased today -As needed hydralazine Leukocytosis, resolved -Likely inflammatory secondary to -UA negative, back to within normal limits Diabetes -Patient has not needed insulin during the stay after , patient can likely be taken off insulin at home, patient will need to follow-up with her primary care provider and they will make a decision if she needs to restart her metformin, patient did not need metformin during the stay Disposition -Thank you for having us as hospitalist consult, will continue to follow -Monitor today for elevated blood pressure, -keep in house, to ensure blood pressure management is under control with the current anti-hypertensive, not at goal yet. do not want patient to develop CVA in the outpatient setting. JERRELL VALENTINE Dec 02, 2018 09:30
[2018-12-02] MEDS: ACCU-CHEK XX SCH (22:50)
[2018-12-03] MEDS: ACCU-CHEK XX SCH ×2 (00:56→02:00)
[2018-12-03 04:00] VITALS: BP 117/67; PULSE 83; RESP 18
[2018-12-03] MEDS: IBUPROFEN 800 MG TAB PO SCH ×2 (05:57→14:08)
[2018-12-03] MEDS: INSULIN ASPART [NOVOLOG] 3 ML PEN SC SCH ×2 (08:05→11:50)
[2018-12-03 08:30] VITALS: BP 113/73; PULSE 77; RESP 18
[2018-12-03] MEDS: NIFEdipine (XL) 60 MG TAB PO SCH (09:30)
[2018-12-03] MEDS: PRENATAL VITAMIN PO SCH (09:30)
[2018-12-03 09:32] VITALS: BP 148/82; PULSE 72; RESP 20
[2018-12-03] MEDS ORDERED: NIFE60TA2 PO (11:53)
[2018-12-03 12:00] VITALS: BP 138/75; PULSE 60; RESP 20
--- NOTE | 2018-12-03 13:11 | CONS ---
Assessment/Plan Assessment/Plan Hospital Course (Demo Recall) 38 yo F s/p cesarian delivery with uncontrolled hypertension . Assessment/Plan (Daily) 1. Hypertension - BP has remained stable and <160. Will recommend continuing on Nifedipine 60mg XL as outpatient. Discussed with patient need to follow up with PCP for close BP monitoring since her BP may normalize following delivery and need dose adjustments - has not needed PRN hydralazine 2. Diabetes Mellitus - Patient has not required Insulin during hospital stay. Discussed need to hold off on taking after discharge and follow up with PCP. - no ISS needed as well 3. Disposition - BP better controlled after adjustment made to Nifedipine dosage. Counseled pt on diet and to following up with PCP for BP checks and adjustments to me dications as needed - Hold Insulin after discharge as well until follows up with PCP. Continue chec evy sugars - Medically stable for discharge once cleared by OB Thank you for allowing me to participate in the care of your patient. Please call with any questions. Consultation Date/Type/Reason Admit Date/Time Nov 22, 2018 at 02:43 Initial Consult Date Type of Consult Internal Medicine Reason for Consultation Hypertension Date/Time of Note DATE: 12/03/18 TIME: 13:02 24 HR Interval Summary Free Text/Dictation Patient is doing well and denies any chest pain or shortness of breath. No a cute overnight events. Exam/Review of Systems Exam Vitals Vital Signs Date Temp Pulse Resp B/P (MAP) Pulse Ox O2 O2 Flow FiO2 Time Delivery Rate 12/03/18 98.0 72 20 148/82 Room Air 09:32 (104) 12/01/18 97 21:00 Exam General: Patient is laying in bed and answers questions appropriately Neck: Supple, nontender, midline Respiratory: Clear to auscultation bilaterally. no wheezing Cardiovascular: regular rate and rhythm, no obvious murmurs Gastrointestinal: soft, non-tender to palpation, bowel sounds heard. Neurological: Able to move all extremities Skin: No new skin lesions Results Result Diagram: 12/02/1862612/02/18626 Results 24hrs Laboratory Tests Test 12/02/18 17:55 12/02/18 22:50 12/03/18 00:56 12/03/18 08:29 Bedside Glucose 138 151 98 126 Test 12/03/18 08:31 12/03/18 12:48 Bedside Glucose 126 109 Medications Medication Current Medications Prenat Multivit/ Form Raiser/Iron/Folic Ac () 1 tab DAILY PO Last administered on 12/03/18at 09:30; Admin Dose 1 TAB; Start 11/22/18 at 09:00 Docusate Sodium (Colace) 100 mg BID PRN PO CONSTIPATION Last administered on 11/30/18at 11:06; Admin Dose 100 MG; Start 11/23/18 at 23:00 Methylergonovine Maleate (Methergine) 0.2 mg ONCE PRN IM .VAGINAL BLEEDING; Start 11/27/18 at 12:00 Carboprost Tromethamine (Hemabate) 250 mcg ONCE PRN IM .VAGINAL BLEEDING; Start 11/27/18 at 12:00 Misoprostol (Cytotec) 1,000 mcg ONCE PRN ND .VAGINAL BLEEDING; Start 11/27/18 at 12:00 Miscellaneous Information (* Miscellaneous Pharmacy Order) Duramorph: .2 mg Spi... GIVEN XX ; Start 11/27/18 at 16:00 Miscellaneous Information 1 ea NOTE XX ; Start 11/27/18 at 16:00 Glucose (Glutose) 15 gm Q15M PRN PO DECREASED GLUCOSE; Start 11/27/18 at 16:00 Glucose (Glutose) 22.5 gm Q15M PRN PO DECREASED GLUCOSE; Start 11/27/18 at 16:00 Dextrose (D50w Syringe) 50 ml Q15M PRN IV DECREASED GLUCOSE; Start 11/27/18 at 16:00 Glucagon (Glucagen) 1 mg Q15M PRN IM DECREASED GLUCOSE; Start 11/27/18 at 16:00 Glucose (Glutose) 15 gm Q15M PRN BUCCAL DECREASED GLUCOSE; Start 11/27/18 at 16:00 Diagnostic Test (Pha) (Accu-Chek) 1 ea 02 XX Last administered on 12/03/18at 00:56; Admin Dose 1 EA; Start 11/28/18 at 02:00 Hydralazine HCl (Apresoline) 10 mg Q4H PRN IV sbp >160 Last administered on 11/27/18at 17:34; Admin Dose 10 MG; Start 11/27/18 at 17:00 IV Flush (NS 3 ml) 3 ml PER PROTOCOL IV ; Start 11/27/18 at 19:00 Acetaminophen/ Hydrocodone Bitart ([place] (5/325)) 2 tab Q4H PRN PO .PAIN 7-10 Last administered on 11/29/18 08:23; Admin Dose 2 TAB; Start 11/27/18 at 19:00 Ibuprofen (Motrin) 800 mg Q8 PO Last administered on 12/03/18at 05:57; Admin Dose 800 MG; Start 11/27/18 at 22:00 Simethicone (Mylicon) 160 mg Q8H PRN PO .GAS; Start 11/27/18 at 19:00 Sodium Biphosphate/ Sodium Phosphate (Fleet Enema) 133 ml DAILY PRN ND .CONSTIPATION; Start 11/27/18 at 19:00 Lanolin (Lanolin Hpa) 1 applic BEDSIDE MEDICATION PRN TOP .NIPPLES Last administered on 11/28/18at 10:10; Admin Dose 1 APPLIC; Start 11/27/18 at 19:00 Oxytocin/Lactated Ringer's 500 ml @ 0 mls/hr ONCE PRN IV .VAGINAL BLEEDING; Start 11/27/18 at 19:00 Methylergonovine Maleate (Methergine) 0.2 mg ONCE PRN IM .VAGINAL BLEEDING; Start 11/27/18 at 19:00 Carboprost Tromethamine (Hemabate) 250 mcg ONCE PRN IM .VAGINAL BLEEDING; Start 11/27/18 at 19:00 Misoprostol (Cytotec) 1,000 mcg ONCE PRN ND .VAGINAL BLEEDING; Start 11/27/18 at 19:00 IV Flush (NS 3 ml) 3 ml PER PROTOCOL IV ; Start 11/27/18 at 21:30 Insulin Aspart (Novolog Insulin Pen) NOVOLOG *MILD* ALGORITHM WITH MEALS BEDTIME SC ; Start 11/28/18 at 11:50 Nifedipine (Procardia Xl) 60 mg DAILY PO Last administered on 12/03/18 09:30; Admin Dose 60 MG; Start 12/02/18 at 09:00 HAZEL UP MD Dec 03, 2018 13:11
--- NOTE | 2018-12-04 16:23 | DELSUM ---
Delivery Summary A-C Datetime Report Generated by [facility]: 12/04/2018 16:23 DELIVERY PERSONNEL Supervisor Pumping: Hum[place], [place] MATERNAL INFORMATION Delivery Anesthesia: Spinal Medications in Delivery: see anesthesia records Delivery QBL (ml): 700 (Annotations: Data stored by [facility] on behalf of user) Placenta Cultured: Yes Maternal Complications: Other Other Maternal Complications: type II diabetes CHTN with possible superimposed PIH RN Comments: LABOR SUMMARY EDC: 01/08/2019 00:00 No. Babies in Womb: 1 Attempted: No Labor Anesthesia: Intrathecal LABOR INFORMATION Reason for Induction: Not Applicable Oxytocin: N/A Group B Beta Strep: Not Done Antibiotics # of Doses: 1 Antibiotics Time of Last Dose: 11/27/2018 15:00 Steroids Given: Full Course Reason Steroids Not Administered: Maternal Indication MEMBRANES Membranes Rupture Method: Artificial Rupture of Membranes: 11/27/2018 15:16 Length of Rupture (hr): 0.00 Amniotic Fluid Color: Clear Amniotic Fluid Amount: Small Amniotic Fluid Odor: Normal STAGES OF LABOR Stage 3 hr: 0 Stage 3 min: 1 CSECTION DELIVERY Primary Indication: Severe PIH, Unfavor Cervix CSection Urgency: Elective CSection Incidence: Primary Labor: No Labor Elective: Elective CSection Incision: Lower Uterine Transverse BABY A INFORMATION Infant Delivery Date/Time: 11/27/2018 15:16 Method of Delivery: Born in Route : No : N/A Forceps: N/A Vacuum Extraction: N/A Shoulder Dystocia : No SHOULDER DYSTOCIA BABY A Infant Delivery Date/Time: 11/27/2018 15:16 PRESENTATION/POSITION BABY A Presentation: Cephalic Cephalic Presentation: Vertex Vertex Position: Left Occipital Anterior Breech Presentation: N/A PLACENTA INFORMATION BABY A Placenta Delivery Time : 11/27/2018 15:17 Placenta Method of Delivery: Manual Removal Placenta Status: Delivered SCORES BABY A Heart Rate 1 min: >100 bpm Resp Effort 1 min: Slow, Irregular Reflex Irritability 1 min: Cough/Sneeze/Pulls Away Muscle Tone 1 min: Active Motion Color 1 min: Body [place], Extremit Blue Resuscitation Effort 1 min: Tactile Stimulation SCORE 1 MIN: 8 Heart Rate 5 min: >100 bpm Resp Effort 5 min: Good Cry Reflex Irritability 5 min: Cough/Sneeze/Pulls Away Muscle Tone 5 min: Active Motion Color 5 min: Body [place], Extremit Blue SCORE 5 MIN: 9 INFORMATION BABY A Gestational Age at Delivery: 34.0 Gestational Status: Late - 34- 36.6 Weeks Infant Outcome : Liveborn Infant Condition : Stable Sex: Female IDENTIFICATION/MEDS BABY A ID Band Number: [id number] Sensor Applied: No WEIGHT/LENGTH BABY A Infant Birthweight (gm): 2225 Weight (lb): 4 Infant Weight (oz): 14 Length (in): 17.50 Infant Length (cm): 44.45 CORD INFORMATION BABY A No. Cord Vessels: 3 Nuchal Cord : Around Neck x1, Loose Cord Blood Taken: Yes Suction: Mouth; Nose ASSESSMENT BABY A Complications: None Physical Findings at Delivery: Within Normal Limits Respirations: Appears Normal Optician Apprentice/ALS Called : Yes Care By: /nicu team Transferred To: NICU
== END 2018-12-03 16:22 | disposition home or self-care (01) | DRG 786 ==
LOC: L-D 23:55 → OBT 23:55 → L-D 11-22 02:43 → PP1 11-23 15:30 → L-D 11-27 11:46 → PP1 11-27 18:12
PROVIDERS: ADMIT Obstetrics & Gynecology; ATTEND Obstetrics & Gynecology
PROC: 10D00Z1 Extraction of Products of Conception, Low, Open Approach (ICD-10-PCS; principal; 2018-11-27 13:30)
DX: O60.13X0 Preterm labor second trimester with preterm delivery third trimester, not applicable or unspecified (principal); O24.12 Pre-existing type 2 diabetes mellitus, in childbirth; E11.9 Type 2 diabetes mellitus without complications; O14.14 Severe pre-eclampsia complicating childbirth; O16.5 Unspecified maternal hypertension, complicating the puerperium; Z3A.33 33 weeks gestation of pregnancy; Z37.0 Single live birth; Z79.4 Long term (current) use of insulin
CPT/HCPCS: 76815; 76817; 76818; 76820; 80048; 80053; 80069; 81001; 81003; 82575; 82962; 83735; 84100; 84156; 84560; 85025; 85610; 85730; 86592; 86850; 86900; 86901; 88307; 90715; 99464; G0463; J0360; J0690; J0702; J1100; J1815; J1885; J2274; J2405; J2590; J3010; J3475; J7120